=== PATIENT | female | born 1970 | race Caucasian/White ===

== ENCOUNTER 2024-01-21 16:28 | Emergency (ER) | payer MEDICAID, SELFPAY ==
[2024-01-21 17:05] VITALS: BP 180/84; PULSE 91; RESP 20; TEMP 37.1; O2SAT 98
--- NOTE | 2024-01-21 17:44 | XR_ITS ---
Examination: PA chest single view Technique: Upright PA chest single view Exam date and time: January 21, 2024 1737 hrs. Comparison April 16, 2023 Indications: Coughing today Findings: Normal heart size Lungs are clear. The osseous structures are intact Impression: No active disease
--- NOTE | 2024-01-21 17:44 | EKG_ITS ---
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
--- NOTE | 2024-01-21 17:46 | EDNOTE_ITS ---
<Statement entered by Sarita Garcia MD - 01/22/24 19:21> As co-signing physician, I was present and available for consult prn. I concur with the plan and care as documented by the midlevel provider. ED Chest Pain RME/HPI General Chief Complaint: Chest Pain Stated Complaint: CHEST PAIN, COUGH, SOB, LOWER BACK PAIN Time Seen by Provider: 01/21/24 16:39 Arrival date/time: 01/21/24 16:28 RME / HPI RME / HPI narrative: 53-year-old female patient came in for evaluation regarding cough. Patient's been having worsening cough for the last 3 days, associated with shortness of breath, wheezing, severity moderate. Patient also complaining of bilateral flank pain, since yesterday. Denies any fever. Denies any chest pain or coughing. Denies any other complaints no medication was taken prior travel. Related Data Home Medications ?Medication ?Instructions ?Recorded ?Confirmed gabapentin 300 mg capsule 300 mg PO TID #0 caps 01/04/15 03/23/23 metoprolol tartrate 25 mg tablet 25 tab PO BID 06/19/21 03/23/23 levetiracetam 500 mg tablet 500 mg PO BID 03/15/23 03/23/23 oxybutynin chloride 5 mg 5 mg PO DAILY 03/15/23 03/23/23 tablet,extended release 24 hr Previous Rx's ?Medication ?Instructions ?Recorded albuterol sulfate 90 mcg/actuation 1 inh inhalation QID PRN shortness 01/11/21 aerosol inhaler (ProAir HFA) of breath or wheezing #8.5 grams albuterol sulfate 90 mcg/actuation 1 inh inhalation QID PRN shortness 03/18/23 aerosol inhaler of breath or wheezing #8.5 grams fluticasone furoate 100 1 inh inhalation Q24H #60 ea 03/18/23 mcg-vilanterol 25 mcg/dose inhalation powder (Breo Ellipta) levofloxacin 500 mg tablet 500 mg PO QDAY #5 tabs 03/18/23 prednisone 10 mg tablet See Taper PO QDAY #10 tabs 03/18/23 sertraline 25 mg tablet 50 mg (2 x 25 mg) PO HS 30 days 03/18/23 #60 tabs albuterol sulfate 90 mcg/actuation 2 inh inhalation Q4H PRN shortness 03/23/23 aerosol inhaler of breath or wheezing #8.5 grams albuterol sulfate 90 mcg/actuation 2 puff inhalation QID PRN 04/16/23 aerosol inhaler shortness of breath or wheezing #8.5 grams prednisone 50 mg tablet 50 mg PO QDAY #7 tabs 04/16/23 prednisone 50 mg tablet 50 mg PO QDAY #7 tabs 01/21/24 Allergies Allergy/AdvReac Type Severity Reaction Status Date / Time Penicillins Allergy Mild RESP.DISTRE Verified 06/25/22 06:08 SS strawberry Allergy Mild HIVES Verified 06/25/22 06:08 tomato Allergy Mild FACIAL Verified 06/25/22 06:08 SWELLING watermelon Allergy Mild BLISTERS Verified 06/25/22 06:08 IN MOUTH Review of Systems Review of Systems Narrative Review of Systems: Review of system reviewed and within normal limits except mentioned in HPI ED Exam Narrative Physical exam: VITAL SIGNS: Reviewed. GENERAL APPEARANCE: Alert and interactive, follows commands, no acute distress, HEAD AND FACE: Non-traumatic. ENT: PERRL, pink conjunctivitis, eyelid no trauma, Mucous membrane moist. NECK: Supple, nontender, no nuchal rigidity. CHEST: No tenderness, no crepitus, no paradoxical movement, no retractions. LUNGS:Symmetric, no rales, + wheezing, no ronchi, no stridor, decreased breath sounds bilaterally. HEART: Regular rate, regular rhythm, no murmur, no gallops. ABDOMEN: Soft, positive bowel sounds, nondistended, no guarding, nontender, no rebound, no masses, RECTAL: Deferred. GENITAL: Deferred. NEUROLOGICAL: Gross motor function intact sensory function intact, Appropriate for age. MUSCULOSKELETAL: low back nontender, full range of motion. EXTREMITIES: Nontender, full range of motion. SKIN: Color pink, dry, no rash, no lacerations, no abrasions, no contusions. LYMPHATICS: Deferred. Course Quality Measures none Orders Category Date Time Status EKG (ED ONLY) *Do not use* NOW Care 01/21/24 17:44 Completed EKG (ED Only) Stat Exams 01/21/24 17:44 Draft XR chest 1V Stat Exams 01/21/24 17:44 Completed B-Type Natriuretic Peptide Stat Lab 01/21/24 18:07 Completed CBC Stat Lab 01/21/24 18:07 Completed Comprehensive Metabolic Panel Stat Lab 01/21/24 18:07 Completed Partial Thromboplastin Time Stat Lab 01/21/24 18:07 Completed Troponin I Stat Lab 01/21/24 18:07 Completed Urinalysis, C/S if Indicated Stat Lab 01/21/24 18:28 Completed ALBUTEROL RT 0.5ml [Proventil Rt 0.5ml] Med 01/21/24 17:45 Discontinued 2.5 mg INH X1 ONE Albuterol/Ipratr Rt Marcy [Duoneb Rt Marcy] Med 01/21/24 17:45 Discontinued 3 ml INH X1 ONE Dexamethasone Inj [Decadron Inj] Med 01/21/24 17:45 Discontinued 10 mg IM X1 ONE Sodium Chloride Rt Marcy 0.9% [NS Rt Marcy 0.9%] Med 01/21/24 17:45 Active 3 ml INH PRN PRN Vital Signs Vital signs: Vital Signs Temperature 98.8 F 01/21/24 17:05 Pulse Rate 91 01/21/24 17:05 Respiratory Rate 20 01/21/24 17:05 Blood Pressure 180/84 H 01/21/24 17:05 Pulse Oximetry (%) 98 01/21/24 17:05 Oxygen Delivery Method Room Air 01/21/24 17:05 Chest Pain MDM Narrative MDM Narrative:: 53-year-old female patient came in for evaluation regarding cough. Patient's been having worsening cough for the last 3 days, associated with shortness of breath, wheezing, severity moderate. Patient also complaining of bilateral flan k pain, since yesterday. Denies any fever. Denies any chest pain or coughing. Denies any other complaints no medication was taken prior travel. Chest x-ray came back unremarkable. Laboratory workup also came back normal. Patient received Decadron IM, and albuterol/DuoNeb breathing treatment with complete resolution of wheezing. Currently satting 93% on room air. Patient is denying any complaints. Patient wanted to go home now Patient data External records reviewed:: None Clinical information provided by:: patient Social determinants that could affect healthcare access:: none Patient has the following chronic illnesses:: COPD, seizure disorder hypertension How is presenting disease/condition affected by chronic disease/condition?: exacerbated by Evaluation data The following diagnostics were reviewed and interpreted by me:: lab results and radiology exam(s) Lab and/or radiology exams considered but not ordered:: None Interpretation Summary: I personally reviewed and interpreted the x-ray of this patient. There is no acute abnormalities found, no infiltrates no pneumothorax no hemothorax normal chest x-ray. Review of other structures was without significant abnormal findings also. I additionally reviewed the radiologist report and agree with the interpretation. Laboratory workup also came back normal. Urinalysis no UTI Medications / Prescriptions Medications or Prescriptions considered but not ordered:: None Medication administrations:: Medication Administration History Sodium Chloride (Sodium Chloride Rt [place]cy 0.9% 3 Ml Nebu) 3 ml INH PRN PRN PRN Reason: SOLN Stop: 02/20/24 17:44 Discontinued Medications Albuterol (Albuterol Rt 2.5 Mg/0.5 Ml Nebu) 2.5 mg INH X1 ONE Stop: 01/21/24 17:46 Last Admin: 01/21/24 18:10 Dose: 2.5 mg Documented By: DARBY Albuterol/Ipratropium (Albuterol/Ipratropium (Duoneb) Rt Marcy 3 Ml Nebu) 3 ml INH X1 ONE Stop: 01/21/24 17:46 Last Admin: 01/21/24 18:10 Dose: 3 ml Documented By: DARBY Dexamethasone Sodium Phosphate (Dexamethasone Sod Phos Inj 10 Mg/Ml Vial) 10 mg IM X1 ONE Stop: 01/21/24 17:46 Last Admin: 01/21/24 18:13 Dose: 10 mg Documented By: TRUDY Decadron, albuterol DuoNeb breathing treatment Consultations Consultation(s) initiated? (list below): No Diagnosis Chest Pain Differential Diagnosis: pneumothorax and other (Shortness of breath, wheezing, COPD exacerbation) Most likely diagnosis given after review of the tests above:: COPD exacerbation Admission Indicated Admission indicated?: not indicated Explain why admission is indicated or not indicated:: Stable Admission Request Was there a request for admission?: No Disposition Plan Disposition Plan: Discharge Discharge Attestation Discharge Attestation: The patient and all family members were given an opportunity to ask questions and understood the discharge instructions. Discharge instructions specifically effects, indications for sooner follow up or return to the emergency department, and the expected course of current diagnosis. Patient condition: Stable Discharge Plan Plan Patient Disposition: HOME (Self Care) Disposition Comment: Stable Prescriptions/Referrals Prescriptions/Med Rec: New prednisone 50 mg tablet 50 mg PO QDAY Qty: 7 0RF No Action gabapentin 300 MG capsule 300 mg PO TID Qty: 0 metoprolol tartrate 25 mg tablet 25 tab PO BID albuterol sulfate [ProAir HFA] 90 mcg/actuation HFA aerosol inhaler 1 inh inhalation QID PRN (Reason: shortness of breath or wheezing) Qty: 8.5 0RF levetiracetam 500 mg tablet 500 mg PO BID oxybutynin chloride 5 mg tablet extended release 24hr 5 mg PO DAILY sertraline 25 mg Tablet 50 mg PO HS 30 Days Qty: 60 2RF fluticasone furoate-vilanterol [Breo Ellipta] 100-25 mcg/dose blister with device 1 inh inhalation Q24H Qty: 60 2RF albuterol sulfate 90 mcg/actuation HFA aerosol inhaler 1 inh inhalation QID PRN (Reason: shortness of breath or wheezing) Qty: 8.5 2RF levofloxacin 500 mg tablet 500 mg PO QDAY Qty: 5 0RF prednisone 10 mg tablet See Taper PO QDAY Qty: 10 0RF Taper: Prednisone Taper 20 mg DAILY for 2 Days and 0 Hour 10 mg DAILY for 2 Days and 0 Hour 5 mg DAILY for 7 Days and 0 Hour albuterol sulfate 90 mcg/actuation HFA aerosol inhaler 2 inh inhalation Q4H PRN (Reason: shortness of breath or wheezing) Qty: 8.5 0RF albuterol sulfate 90 mcg/actuation HFA aerosol inhaler 2 puff inhalation QID PRN (Reason: shortness of breath or wheezing) Qty: 8.5 0RF prednisone 50 mg tablet 50 mg PO QDAY Qty: 7 0RF Referrals: Daria Finley PA-C [Primary Care Provider] - In 1 week Problem List Clinical Impression: Acute exacerbation of chronic obstructive airways disease Patient/Caregiver Discharge Instructions Discharge Activity: resume usual activities Education Materials: COPD Meds Additional Instructions: Thank you for the opportunity for serving you today. You are stable for discharged . You are advised to: Follow-up with your PCP in 1 to 2 days Return to ED for worsening of symptoms Increase oral fluids Take medication as prescribed Continue taking your albuterol inhaler Print Language: Danish Stand Alone Forms: Marisel Award Info., Patient Portal Info Letter PA/NAT Supervising Physician PA/ADMISSION NURSE COORDINATOR Supervising Physician: MD Radha
[2024-01-21 18:10] VITALS: PULSE 92
[2024-01-21] MEDS: ALBUTEROL/IPRATROPIUM (Duoneb) RT SOL 3 ML NEBU INH (18:10)
[2024-01-21] MEDS: ALBUTEROL RT 2.5 MG/0.5 ML NEBU INH (18:10)
[2024-01-21] MEDS: DEXAMETHASONE SOD PHOS INJ 10 MG/ML VIAL IM (18:13)
[2024-01-21 18:20] VITALS: PULSE 92; RESP 22; O2SAT 93
[2024-01-21 18:37] LABS: Collection Type, Urine Clean Catch; RBC,Urine 0 /hpf (0-3); Squamous Epithelial Cell,Urine 0 /hpf (0-5); WBC,Urine 0 /hpf (0-5)
[2024-01-21 18:38] LABS: Basophils # (Auto) 0.1 Thou/mm3 (0.0-0.2); Basophils % (Auto) 1 % (0-2.5); Eosinophils # (Auto) 0.1 Thou/mm3 (0.0-0.5); Eosinophils % (Auto) 1 % (0-10); Hematocrit 42.4 % (36.0-46.0); Immature Granulocytes % (Auto) 0 % (0-0); Immature Granulocytes Auto 0.04 Thou/mm3 (0.00-0.00); Lymphocytes # (Auto) 1.6 Thou/mm3 (1.0-4.8); Lymphocytes % (Auto) 16 % (10-50); Mean Corpuscular Hemoglobin 29.7 pg (25.0-35.0); Mean Corpuscular Volume 90 fL (80-100); Monocytes # (Auto) 0.9 Thou/mm3 (0.0-0.8); Monocytes % (Auto) 10 % (0-12); Neutrophils # (Auto) 7.1 Thou/mm3 (1.8-7.7); Neutrophils % (Auto) 72 % (37-80); Nucleated Red Blood Cell % 0 /100 WBC (0); Platelet Count 238 Thou/mm3 (140-440); RDW Standard Deviation 43.3 fL (36.4-46.3); Red Blood Count 4.71 Miln/mm3 (4.00-5.20); White Blood Count 9.9 Thou/mm3 (3.6-11.0)
[2024-01-21 18:45] LABS: Bacteria,Urine Rare; Bilirubin,Urine Negative (Negative); Blood,Urine Negative (Negative); Clarity,Urine Clear (Clear/Hazy); Color,Urine Lt-Yellow (Lt Yel-Yel); Culture Indicated,Urine Not Indicated; Glucose, Urine Negative (Negative); Ketones,Urine Negative (Negative); Leukocyte Esterase,Urine Negative (Negative); Nitrite,Urine Negative (Negative); PH,Urine 7.5 (5.0-7.0); Protein,Urine Negative (Neg - Trace); Specific Gravity,Urine 1.012 (1.001-1.035); Urobilinogen,Urine Negative mg/dL (0.0-1.0)
[2024-01-21 18:53] LABS: Partial Thromboplastin Time 29.3 Seconds (22.0-36.0)
[2024-01-21 19:02] LABS: B-Type Natriuretic Peptide 29 pg/mL (0-100)
[2024-01-21 19:05] LABS: Alanine Aminotransferase 46 U/L (10-49); Albumin, Serum 4.6 gm/dL (3.5-5.0); Albumin/Globulin Ratio 1.8 (1.2-2.2); Alkaline Phosphatase 171 U/L (46-116); Anion Gap 5 (7-16); Aspartate Amino Transferase 32 U/L (0-34); BUN/Creatinine Ratio 13 Ratio (12-20); Bilirubin,Total 0.3 mg/dL (0.3-1.2); Blood Urea Nitrogen 10 mg/dL (9-23); Calcium 9.7 mg/dL (8.3-10.6); Calcium (Corrected) 9.7 mg/dL (8.5-10.1); Carbon Dioxide 29.7 mMol/L (20.0-31.0); Chloride 102 mMol/L (98-107); Creatinine (Component) 0.8 mg/dL (0.6-1.3); Globulin 2.6 gm/dL (2.3-3.5); Glucose 95 mg/dL (74-106); Osmolality,Calculated 272 (275-295); Potassium 4.2 mMol/L (3.4-5.1); Sodium 137 mMol/L (136-145); Total Protein 7.2 gm/dL (5.7-8.2); Troponin I < 0.020 ng/mL (0.0-0.045); eGFR > 60 See Note
[2024-01-21 20:41] VITALS: BP 128/77; PULSE 88; RESP 16; O2SAT 99
== END 2024-01-21 20:41 | disposition home or self-care (01) ==
PROVIDERS: Nurse Practitioner Family; Emergency Provider Emergency Medicine; PCP Physician Assistant
DX: J44.1 Chronic obstructive pulmonary disease with (acute) exacerbation (principal)
CPT/HCPCS: 36415; 71045; 80053; 81001; 83880; 84484; 85025; 85730; 93005; 94640; 96372; 99283; A9270; J1100

== ENCOUNTER 2024-02-07 15:47 | Emergency (ER) | payer MEDICAID, SELFPAY ==
[2024-02-07 16:02] VITALS: BP 177/134; PULSE 94; RESP 20; TEMP 36.6; O2SAT 96
[2024-02-07 16:05] VITALS: PULSE 110
[2024-02-07] MEDS: IPRATROPIUM RT 0.5 MG/ 2.5 ML NEBU 1 MG INH (16:05)
[2024-02-07] MEDS: ALBUTEROL RT 2.5 MG/0.5 ML NEBU 10 MG INH (16:05)
[2024-02-07] MEDS: SODIUM CHLORIDE RT SOL 0.9% 3 ML NEBU INH (16:05)
[2024-02-07 16:06] VITALS: PULSE 87; RESP 20; O2SAT 96
[2024-02-07 16:11] VITALS: BMI 41.3
[2024-02-07] MEDS: LORazepam 0.5 MG TABLET 1 MG PO (16:17)
[2024-02-07] MEDS: predniSONE 20 MG TABLET 60 MG PO (16:19)
--- NOTE | 2024-02-07 17:03 | EDNOTE_ITS ---
ED SOB =RME/HPI General Chief Complaint: Shortness of Breath/Dyspnea Stated Complaint: respiratory distress Time Seen by Provider: 02/07/24 15:57 Arrival date/time: 02/07/24 15:47 RME / HPI RME / HPI Narrative: 53 y/o F with history of COPD continued secondhand smoke exposure, who recently finished prednisone approximately 3 days ago for recent exacerbation, who presents with 1 day of increasing shortness of breath. She has been using inhaler today with countless number of treatments/puffs without improvement therefore comes to the emergency department. She also notes approximately 2 days of increasing runny nose, and a productive cough she is concerned that she cannot completely cough up this phlegm. She denies sick contacts. 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 She is not vaccinated for the flu. Related Data Home Medications ?Medication ?Instructions ?Recorded ?Confirmed gabapentin 300 mg capsule 300 mg PO TID #0 caps 01/04/15 03/23/23 metoprolol tartrate 25 mg tablet 25 tab PO BID 06/19/21 03/23/23 levetiracetam 500 mg tablet 500 mg PO BID 03/15/23 03/23/23 oxybutynin chloride 5 mg 5 mg PO DAILY 03/15/23 03/23/23 tablet,extended release 24 hr Previous Rx's ?Medication ?Instructions ?Recorded albuterol sulfate 90 mcg/actuation 1 inh inhalation QID PRN shortness 01/11/21 aerosol inhaler (ProAir HFA) of breath or wheezing #8.5 grams albuterol sulfate 90 mcg/actuation 1 inh inhalation QID PRN shortness 03/18/23 aerosol inhaler of breath or wheezing #8.5 grams fluticasone furoate 100 1 inh inhalation Q24H #60 ea 03/18/23 mcg-vilanterol 25 mcg/dose inhalation powder (Breo Ellipta) levofloxacin 500 mg tablet 500 mg PO QDAY #5 tabs 03/18/23 prednisone 10 mg tablet See Taper PO QDAY #10 tabs 03/18/23 sertraline 25 mg tablet 50 mg (2 x 25 mg) PO HS 30 days 03/18/23 #60 tabs albuterol sulfate 90 mcg/actuation 2 inh inhalation Q4H PRN shortness 03/23/23 aerosol inhaler of breath or wheezing #8.5 grams albuterol sulfate 90 mcg/actuation 2 puff inhalation QID PRN 04/16/23 aerosol inhaler shortness of breath or wheezing #8.5 grams prednisone 50 mg tablet 50 mg PO QDAY #7 tabs 04/16/23 prednisone 50 mg tablet 50 mg PO QDAY #7 tabs 01/21/24 albuterol sulfate 90 mcg/actuation 1 inh inhalation QID PRN shortness 02/07/24 aerosol inhaler of breath or wheezing #8.5 grams doxycycline monohydrate 100 mg 100 mg PO BID #10 caps 02/07/24 capsule oseltamivir 75 mg capsule (Tamiflu) 75 mg PO Q12H 5 days #10 caps 02/07/24 prednisone 50 mg tablet 50 mg PO QDAY #3 tabs 02/07/24 Allergies Allergy/AdvReac Type Severity Reaction Status Date / Time Penicillins Allergy Mild RESP.DISTRE Verified 06/25/22 06:08 SS strawberry Allergy Mild HIVES Verified 06/25/22 06:08 tomato Allergy Mild FACIAL Verified 06/25/22 06:08 SWELLING watermelon Allergy Mild BLISTERS Verified 06/25/22 06:08 IN MOUTH Review of Systems Review of Systems Systems Reviewed: All systems reviewed, normal except as documented ED Exam Narrative Physical exam: GENERAL APPEARANCE: AxOx4, obese, smells of cigarette smoke, audible wheezes with very exaggerated respiratory effort, increased respiratory distress, anxious, but able with calming to speak 3-5 word sentences HEENT: NC, AT. MMM. EOMI, clear conjunctiva, oropharynx clear. NECK: Supple without lymphadenopathy. No stiffness or restricted ROM. HEART: Normal rate and regular rhythm, normal S1/S1, no m/r/g LUNGS: moving air well. Wise expiratory wheezes no crackles or wheezes are heard. ABDOMEN: Soft, nontender, nondistended with good bowel sounds heard. BACK: No midline C/T/L spine pain or deformity, No CVAT, no obvious deformity. EXTREMITIES: Without cyanosis, clubbing or edema. MUSCULOSKELETAL: FROM of all major joints, no chest tenderness NEUROLOGICAL: Grossly nonfocal. Alert and oriented, moving all 4 extremities. CN not formally tested but appear grossly intact. Observed to ambulate with normal gait. Skin: Warm and dry without any rash. Course Quality Measures none Orders Category Date Time Status ALBUTEROL RT 0.5ml [Proventil Rt 0.5ml] Med 02/07/24 15:56 Discontinued 10 mg INH X1 ONE Ipratropium [place] Rt Marcy [Atrovent Rt Marcy] Med 02/07/24 15:57 Discontinued 1 mg INH X1 ONE LORazepam [Ativan] Med 02/07/24 15:57 Discontinued 1 mg PO X1 ONE Sodium Chloride Rt Marcy 0.9% [NS Rt Marcy 0.9%] Med 02/07/24 15:56 Active 3 ml INH PRN PRN predniSONE Med 02/07/24 15:57 Discontinued 60 mg PO X1 ONE Vital Signs Vital signs: Vital Signs Temperature 97.9 F 02/07/24 16:02 Pulse Rate 94 02/07/24 16:02 Respiratory Rate 20 02/07/24 16:02 Blood Pressure 177/134 H 02/07/24 16:02 Pulse Oximetry (%) 96 02/07/24 16:02 Oxygen Delivery Method Nasal Cannula 02/07/24 16:02 Oxygen Flow Rate 2 02/07/24 16:02 SpO2 96% on 2 L nasal cannula patient is not hypoxic Shortness of Breath / Dyspnea MDM Narrative MDM Narrative:: Ms. Ryan has known COPD who presents with shortness of breath which I feel is compounded by anxiety. After review of her utilization of the MDI I do feel that the anxiety is contributing to ineffective dosing with the treatment. She did very well with an aggressive dose of nebulized bronchodilators, oral anxiolytics, and oral steroids. She has responded well to treatment therefore further workup was not indicated as this is consistent with her chronic COPD. She has stable vital signs, chest x-ray is not indicated as I do feel she can benefit from a dose of oral antivirals and antibiotics for an acute bronchitis where with COPD is at high risk for bacterial superinfection. She likely does have a viral syndrome, given her influenza-like illness, and as she is not immunized, is within 48 hours of onset of symptoms, would benefit from oral Tamiflu. At this point flu testing would not offer strong negative productive value and testing is not warranted today Patient data External records reviewed:: [facility] previous records Clinical information provided by:: patient Social determinants that could affect healthcare access:: none Patient has the following chronic illnesses:: COPD, epilepsy How is presenting disease/condition affected by chronic disease/condition?: caused by Evaluation data The following diagnostics were reviewed and interpreted by me:: other (specify) (Diagnostic testing not indicated today) Lab and/or radiology exams considered but not ordered:: As per narrative Interpretation Summary: Not applicable Medications / Prescriptions Medications or Prescriptions considered but not ordered:: None Medication administrations:: Medication Administration History Sodium Chloride (Sodium Chloride Rt Marcy 0.9% 3 Ml Nebu) 3 ml INH PRN PRN PRN Reason: SOLN Stop: 03/08/24 15:55 Last Admin: 02/07/24 16:05 Dose: 3 ml Documented By: Discontinued Medications Albuterol (Albuterol Rt 2.5 Mg/0.5 Ml Nebu) 10 mg INH X1 ONE Stop: 02/07/24 15:57 Last Admin: 02/07/24 16:05 Dose: 10 mg Documented By: Ipratropium [place] (Ipratropium Rt 0.5 Mg/ 2.5 Ml Nebu) 1 mg INH X1 ONE Stop: 02/07/24 15:58 Last Admin: 02/07/24 16:05 Dose: 1 mg Documented By: Lorazepam (Lorazepam 0.5 Mg Tablet) 1 mg PO X1 ONE Stop: 02/07/24 15:58 Last Admin: 02/07/24 16:17 Dose: 1 mg Documented By: PONCE Prednisone (Prednisone 20 Mg Tablet) 60 mg PO X1 ONE Stop: 02/07/24 15:58 Last Admin: 02/07/24 16:19 Dose: 60 mg Documented By: PONCE Above Consultations Consultation(s) initiated? (list below): No Diagnosis Shortness of Breath Differential Diagnosis: acute exacerbation of chronic obstructive airways disease, congestive heart failure, community acquired pneumonia and other (Acute bronchitis, anxiety) Most likely diagnosis given after review of the tests above:: See below Admission Indicated Admission indicated?: not indicated Admission Request Was there a request for admission?: No Disposition Plan Disposition Plan: Discharge Discharge Attestation Discharge Attestation: The patient and all family members were given an opportunity to ask questions and understood the discharge instructions. Discharge instructions specifically effects, indications for sooner follow up or return to the emergency department, and the expected course of current diagnosis. Patient condition: Stable Critical Care Time Critical Care Time Critical Care Time: Yes Total Critical Care Time (min.): 35 Attestation: Excluding billable procedures for the rep response, analysis, management, treatment, and documentation to vent the very possible risk of cardiopulmonary decompensation and/or . Discharge Plan Plan Patient Disposition: HOME (Self Care) Prescriptions/Referrals Prescriptions/Med Rec: New doxycycline monohydrate 100 mg capsule 100 mg PO BID Qty: 10 0RF oseltamivir [Tamiflu] 75 mg capsule 75 mg PO Q12H 5 Days Qty: 10 0RF prednisone 50 mg tablet 50 mg PO QDAY Qty: 3 0RF albuterol sulfate 90 mcg/actuation HFA aerosol inhaler 1 inh inhalation QID PRN (Reason: shortness of breath or wheezing) Qty: 8.5 0RF Rx Instructions: Please dispense with spacer and teaching No Action gabapentin 300 MG capsule 300 mg PO TID Qty: 0 metoprolol tartrate 25 mg tablet 25 tab PO BID albuterol sulfate [ProAir HFA] 90 mcg/actuation HFA aerosol inhaler 1 inh inhalation QID PRN (Reason: shortness of breath or wheezing) Qty: 8.5 0RF prednisone 50 mg tablet 50 mg PO QDAY Qty: 7 0RF levetiracetam 500 mg tablet 500 mg PO BID oxybutynin chloride 5 mg tablet extended release 24hr 5 mg PO DAILY sertraline 25 mg Tablet 50 mg PO HS 30 Days Qty: 60 2RF fluticasone furoate-vilanterol [Breo Ellipta] 100-25 mcg/dose blister with device 1 inh inhalation Q24H Qty: 60 2RF albuterol sulfate 90 mcg/actuation HFA aerosol inhaler 1 inh inhalation QID PRN (Reason: shortness of breath or wheezing) Qty: 8.5 2RF levofloxacin 500 mg tablet 500 mg PO QDAY Qty: 5 0RF prednisone 10 mg tablet See Taper PO QDAY Qty: 10 0RF Taper: Prednisone Taper 20 mg DAILY for 2 Days and 0 Hour 10 mg DAILY for 2 Days and 0 Hour 5 mg DAILY for 7 Days and 0 Hour albuterol sulfate 90 mcg/actuation HFA aerosol inhaler 2 inh inhalation Q4H PRN (Reason: shortness of breath or wheezing) Qty: 8.5 0RF albuterol sulfate 90 mcg/actuation HFA aerosol inhaler 2 puff inhalation QID PRN (Reason: shortness of breath or wheezing) Qty: 8.5 0RF prednisone 50 mg tablet 50 mg PO QDAY Qty: 7 0RF Referrals: Daria Finley PA-C [Primary Care Provider] - In 1 week Problem List Clinical Impression: Acute exacerbation of chronic obstructive airways disease, Panic attack Patient/Caregiver Discharge Instructions Education Materials: Using an Inhaler with a Spacer, ED COPD Flare, ED Panic Attack Additional Instructions: Follow-up with your primary care doctor in 2 to 3 days for recheck. You can return to the emergency department sooner symptoms worsen or if he notes any new, concerning issues. Print Language: Bermudian Stand Alone Forms: Marisel Award Info., Patient Portal Info Letter
[2024-02-07 17:31] VITALS: BP 127/105; PULSE 91; RESP 18; TEMP 36.6; O2SAT 95
== END 2024-02-07 17:46 | disposition home or self-care (01) ==
PROVIDERS: Emergency Provider Emergency Medicine; PCP Physician Assistant
DX: J44.1 Chronic obstructive pulmonary disease with (acute) exacerbation (principal); F41.0 Panic disorder [episodic paroxysmal anxiety]; Z77.22 Contact with and (suspected) exposure to environmental tobacco smoke (acute) (chronic)
CPT/HCPCS: 94644; 99283; J7512; A9270

== ENCOUNTER 2024-09-04 05:37 | Inpatient (IN) | payer MEDICAID, SELFPAY ==
[2024-09-04] VITALS (36 sets, daily range): BP systolic 100–178; BP diastolic 57–109; PULSE 78–108; RESP 15–32; TEMP 35.9–37.6; O2SAT 92–100; BMI 37.1; BMI 36.9
--- NOTE | 2024-09-04 05:55 | PD.EDRME ---
Rapid Medical Screening Exam RME Arrival date/time: 09/04/24 05:37 This is a case of a 54-year-old female who came in in the emergency room due to painful lump on the right anterior chest for 2 days worsening of the symptoms now that there is a 5 x 5 redness on the anterior right chest this patient decided to sought consult here in the emergency room Chief Complaint: Skin/Abscess/Foreign Body Vital signs: Vital Signs Temperature 99.4 F 09/04/24 05:53 Pulse Rate 108 H 09/04/24 05:53 Respiratory Rate 20 09/04/24 05:53 Blood Pressure 178/83 H 09/04/24 05:53 Pulse Oximetry (%) 98 09/04/24 05:53 Oxygen Delivery Method Room Air 09/04/24 05:53
[2024-09-04] MEDS: HYDROcodone/APAP 5/325 TABLET 1 TAB PO ×2 (05:59→13:03)
[2024-09-04 06:45] LABS: Basophils # (Auto) 0.0 Thou/mm3 (0.0-0.2); Basophils % (Auto) 0 % (0-2.5); Eosinophils # (Auto) 0.1 Thou/mm3 (0.0-0.5); Eosinophils % (Auto) 1 % (0-10); Hematocrit 40.0 % (36.0-46.0); Hemoglobin 13.0 g/dL (12.0-16.0); Immature Granulocytes Auto 0.04 Thou/mm3 (0.00-0.00); Lymphocytes # (Auto) 1.2 Thou/mm3 (1.0-4.8); Lymphocytes % (Auto) 10 % (10-50); Mean Corpuscular HGB Conc 32.5 g/dl (31.0-37.0); Mean Corpuscular Hemoglobin 29.5 pg (25.0-35.0); Mean Corpuscular Volume 91 fL (80-100); Monocytes # (Auto) 1.3 Thou/mm3 (0.0-0.8); Monocytes % (Auto) 10 % (0-12); Neutrophils # (Auto) 9.6 Thou/mm3 (1.8-7.7); Neutrophils % (Auto) 78 % (37-80); Nucleated Red Blood Cell # 0.00 Thou/mm3 (0.00-0.00); Nucleated Red Blood Cell % 0 /100 WBC (0); Platelet Count 212 Thou/mm3 (140-440); RDW Standard Deviation 47.5 fL (36.4-46.3); Red Blood Count 4.41 Miln/mm3 (4.00-5.20); White Blood Count 12.2 Thou/mm3 (3.6-11.0)
--- NOTE | 2024-09-04 06:53 | EKG_ITS ---
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
--- NOTE | 2024-09-04 06:54 | PD.EDSKIN ---
ED Skin Abcess FB-RME/HPI General Chief complaint: Skin/Abscess/Foreign Body Stated complaint: ABSCESS TO RIGHT AXILLA/CHEST AREA Arrival date/time: 09/04/24 05:37 Limitations: no limitations RME / HPI RME / HPI narrative: 09/04/24 05:37 This is a case of a 54-year-old female who came in in the emergency room due to painful lump on the right anterior chest for 2 days worsening of the symptoms now that there is a 5 x 5 redness on the anterior right chest this patient decided to sought consult here in the emergency room DR. BEN OWENS ED EVALUATION: 54-year-old female with past medical history of seizures (currently out of medication), COPD, hypertension, and history of methamphetamine use (smokes, no IV) presents to the Emergency Department accompanied by her spouse with complaint of right-sided underarm area of erythema extending anteriorly to the right nipple, associated with induration, warmth, and a 1 cm area of purulent drainage. Pain has worsened despite being prescribed antibiotics by her PCP on 09/01/2024 and using hot compresses at home. She denies congestion, runny nose, cough, or systemic symptoms. Allergic to penicillin. Related Data Home Medications ?Medication ?Instructions ?Recorded ?Confirmed gabapentin 300 mg capsule 300 mg PO TID #0 caps 01/04/15 03/23/23 metoprolol tartrate 25 mg tablet 25 tab PO BID 06/19/21 03/23/23 levetiracetam 500 mg tablet 500 mg PO BID 03/15/23 03/23/23 oxybutynin chloride 5 mg 5 mg PO DAILY 03/15/23 03/23/23 tablet,extended release 24 hr Previous Rx's ?Medication ?Instructions ?Recorded albuterol sulfate 90 mcg/actuation 1 inh inhalation QID PRN shortness 01/11/21 aerosol inhaler (ProAir HFA) of breath or wheezing #8.5 grams albuterol sulfate 90 mcg/actuation 1 inh inhalation QID PRN shortness 03/18/23 aerosol inhaler of breath or wheezing #8.5 grams fluticasone furoate 100 1 inh inhalation Q24H #60 ea 03/18/23 mcg-vilanterol 25 mcg/dose inhalation powder (Breo Ellipta) levofloxacin 500 mg tablet 500 mg PO QDAY #5 tabs 03/18/23 prednisone 10 mg tablet See Taper PO QDAY #10 tabs 03/18/23 sertraline 25 mg tablet 50 mg (2 x 25 mg) PO HS 30 days 03/18/23 #60 tabs albuterol sulfate 90 mcg/actuation 2 inh inhalation Q4H PRN shortness 03/23/23 aerosol inhaler of breath or wheezing #8.5 grams albuterol sulfate 90 mcg/actuation 2 puff inhalation QID PRN 04/16/23 aerosol inhaler shortness of breath or wheezing #8.5 grams prednisone 50 mg tablet 50 mg PO QDAY #7 tabs 04/16/23 prednisone 50 mg tablet 50 mg PO QDAY #7 tabs 01/21/24 albuterol sulfate 90 mcg/actuation 1 inh inhalation QID PRN shortness 02/07/24 aerosol inhaler of breath or wheezing #8.5 grams doxycycline monohydrate 100 mg 100 mg PO BID #10 caps 02/07/24 capsule prednisone 50 mg tablet 50 mg PO QDAY #3 tabs 02/07/24 Allergies Allergy/AdvReac Type Severity Reaction Status Date / Time Penicillins Allergy Mild RESP.DISTRE Verified 09/04/24 05:39 SS strawberry Allergy Mild HIVES Verified 09/04/24 05:39 tomato Allergy Mild FACIAL Verified 09/04/24 05:39 SWELLING watermelon Allergy Mild BLISTERS Verified 09/04/24 05:39 IN MOUTH Review of Systems Review of Systems Systems Reviewed: All systems reviewed, normal except as documented Past Medical History Past Medical History NEUROLOGIC: Positive Neurological Disorders, Seizures and Head Trauma CARDIAC: Positive Cardiac Disorders and Hypertension RESPIRATORY: Positive Chronic Obstructive Pulmonary Disease (COPD) and Pneumonia GASTROINTESTINAL: Positive Colitis and Obesity REPRODUCTIVE: Positive Previous Pregnancies MUSCULOSKELETAL: Positive Arthritis and Fractures ENT: Positive Head Trauma OTHER HISTORY: Positive Hospitalization and Measles Family History FAMILY HISTORY: Positive Family Cardiac Disorders and Family Cancer (pt's grandma breast cancer) Surgical History SURGICAL: Positive Tubal Ligation and Section Social History SMOKING STATUS: Never smoker SUBSTANCE USE: marijuana (Uses at night to sleep) and methamphetamine (Former) ALCOHOL: Never ED Exam General Limitations: Present no limitations General appearance: Present alert and in no apparent distress Head Head exam: Present atraumatic, normocephalic and normal inspection Eye Eye exam: Present normal appearance, PERRL and EOMI ENT ENT exam: Present normal exam, normal oropharynx and mucous membranes moist Neck Neck exam: Present normal inspection, full ROM and trachea midline Chest Chest inspection: Present normal inspection and symmetric chest wall rise Respiratory Respiratory exam: Present normal lung sounds bilaterally Cardiovascular Cardiovascular exam: Present regular rate, normal rhythm and normal heart sounds Abdominal Exam Abdominal exam: Present soft and normal bowel sounds Extremities Exam Extremities exam: Present normal inspection and full ROM Back Exam Back exam: Present normal inspection and full ROM Neurological Exam Neurological exam: Present alert, oriented X3 and CN II-XII intact Psychiatric Psychiatric exam: Present normal affect and normal mood Skin Skin exam: Present warm, dry and other (5x8 inches area of erythema under the right armpit anteriorly extending to the right nipple surface, with induration and warmness; there is purulent discharge area measuring 1 cm) Course Quality Measures Current suspected stage: sepsis Possible source: skin/soft tissue Blood cultures ordered: yes Antibiotic ordered: Yes Pertinent labs: 09/04/24 07:28 Lactic Acid 0.6 mMol/L (0.4-2.0) Procalcitonin 0.11 ng/ml (0.0-0.49) 0653: Sepsis alert initiated. Orders made at this time are congruent with ED Adult Sepsis Order List. Re-evaluation is to be completed. 0836: Fluids started. 0906: Sepsis reassessment performed consisting of lab review, vitals, physical exam including auscultation of heart, lungs, and visual evaluation of capillary refills, mucosal membranes and extremities. sepsis Orders Category Date Time Status Admit to Inpatient Status Routine Admission 09/04/24 11:45 Active Patient Condition Routine Admission 09/04/24 11:45 Ordered Bedside Blood Glucose NOW Care 09/04/24 06:[address] Screening NOW Care 09/04/24 07:[address] Screening NOW Care 09/04/24 09:15 Active Communication Engineer Q4H START 00 Care 09/04/24 06:53 Active EKG (ED ONLY) *Do not use* NOW Care 09/04/24 11:48 Active Insert IV NOW Care 09/04/24 06:53 Active Notify provider NEEDED Care 09/04/24 11:45 Active Strict Intake and Output Routine Care 09/04/24 06:[address] chest abdomen pelvis w Stat Exams 09/04/24 07:12 Completed CXR2 [XR chest 2V] Stat Exams 09/04/24 11:48 Ordered EKG (ED Only) Stat Exams 09/04/24 11:48 Ordered US breast RT complete Stat Exams 09/04/24 07:05 Completed Blood Culture (Lab) Stat Lab 09/04/24 07:28 Received CBC Stat Lab 09/04/24 06:30 Completed CBC Stat Lab 09/04/24 07:28 Completed CMP [Comprehensive Metabolic Panel] Stat Lab 09/04/24 06:30 Completed Lactate (Lactic Acid) Stat Lab 09/04/24 07:28 Completed Partial Thromboplastin Time Stat Lab 09/04/24 07:28 Completed Procalcitonin Stat Lab 09/04/24 07:28 Completed Prothrombin Time with INR Stat Lab 09/04/24 07:28 Completed HYDROcodone*/APAP 5/325 [Stuart 5/325] Med 09/04/24 05:54 Discontinued 1 tab PO X1 ONE Meropenem Inj [Merrem Inj] 1,000 mg Med 09/04/24 06:54 Discontinued SODIUM CHLORIDE 0.9% (Popper) [Ns 0.9% (P)] 50 ml IV NOW Midazolam Inj [Versed Inj] Med 09/04/24 06:59 Discontinued 2 mg IVP X1 ONE Midazolam Inj [Versed Inj] Med 09/04/24 07:04 Discontinued 2 mg IVP X1 ONE Midazolam Inj [Versed Inj] Med 09/04/24 06:54 Discontinued 6 mg .ROUTE .STK-MED ONE Ringers Lactated 1000 ml [Lactated Ringers] 1,000 ml Med 09/04/24 07:01 Discontinued IV 999 mls/hr Sodium Chloride 0.9% 1000 ml [Ns] 1,000 ml Med 09/04/24 07:09 Discontinued IV 999 mls/hr Vancomycin Inj 1,500 mg Med 09/04/24 08:00 Discontinued Sodium Chloride 0.9% 500 ml [Ns] 500 ml IV X1 Vancomycin Pharmacy to Dose Med 09/04/24 06:54 Discontinued 1 each IV NOW ONE levETIRAcetam INJ [Keppra Inj] Med 09/04/24 06:53 Discontinued 1,000 mg IVP X1 ONE Code Status Routine Oth 09/04/24 11:45 Ordered EKG (RT) Stat RT 09/04/24 06:53 Draft Reevaluation(s) Reevaluation #1: Patient started having a seizure-like activity, shaking, that lasted 30 seconds. Then, following commands and trying to speak. 1 mg of versed was given. Time: 06:56 Vital Signs Vital signs: Vital Signs Temperature 99.4 F 09/04/24 05:53 Pulse Rate 108 H 09/04/24 05:53 Respiratory Rate 20 09/04/24 05:53 Blood Pressure 178/83 H 09/04/24 05:53 Pulse Oximetry (%) 98 09/04/24 05:53 Oxygen Delivery Method Room Air 09/04/24 05:53 Skin / Abscess / Foreign Body MDM Narrative MDM Narrative:: I, Zhane Whitehead, am scribing for and in the presence of Dr. Gabriel. Patient is a 54-year-old female with medical history notable for recurrent skin infections of her axilla, polysubstance use with an emergency department with concerns for possible infected bug bite to patient's right lateral chest wall. Vital signs and exam as listed. Concern for cellulitis, abscess, among others. Ordered labs, breast ultrasound as well as CT of the chest with contrast to look for an abscess. Patient has a history of a seizure disorder, ordered Keppra she has been off of her antiepileptic medications for some months. Patient is allergic to penicillin, ordered meropenem and vancomycin. Patient had seizure-like activity in the emergency department witness, without a postictal state. Patient did receive Versed. Also provided with Keppra. Labs without acute leukocytosis, no left shift, no other acute hematologic abnormality, no significant electrolyte abnormalities, patient with a transaminitis ALT 273 AST 114 alk phos 428, T. bili normal. Procalcitonin lactic acid normal. CT chest abdomen pelvis with diffuse edema anterior and lateral right breast without evidence of abscess. Patient does have right axillary lymphadenopathy. Patient also has a 6 mm pulmonary nodule in the right upper lobe. Has hepatosplenomegaly, no gallstones, no pancreatic mass, she has right kidney scarring and a 2 mm right renal calculus without evidence of obstruction. Patient also with severe osteopenia as well as advanced degenerative disc disease of L1 L2-L3-L4. Given that patient has been on antibiotics, and the swelling and redness has been getting worse over the last couple days, concerned the patient has failed outpatient treatment. Will discuss admission with hospitalist service... acepted patient for admission Patient data External records reviewed:: [facility] previous records Clinical information provided by:: patient Social determinants that could affect healthcare access:: substance use (methamphetamine use (smokes, no IV)) Patient has the following chronic illnesses:: Seizures (currently out of medication), COPD, hypertension, and history of methamphetamine use (smokes, no IV). Allergic to penicillin. How is presenting disease/condition affected by chronic disease/condition?: uneffected by Evaluation data The following diagnostics were reviewed and interpreted by me:: lab results and radiology exam(s) Lab and/or radiology exams considered but not ordered:: none Interpretation Summary: Procedure(s): CT chest abdomen pelvis w Accession Number(s): [id number] cc: Gopal Fulton MD; Walt Tapia MD; Rosa Maria Gabriel MD~ Examination: CT chest with intravenous contrast CT abdomen with intravenous contrast CT pelvis with intravenous contrast 2-D coronal and sagittal reconstructions Time of exam: 25, 0928 hrs. Indications: Left chest and breast pain this week, redness and warmth in the right axillary region with low CTDI: vol (mGy) : 17.9 DLP: (mGycm): 1487 Technique: Multiple axial images of the chest, abdomen and pelvis with intravenous contrast, 3.0 mm slice thickness. Images obtained post intravenous injection Isovue 370 60 cc. 2-D sagittal and coronal reconstructions. Low dose protocols were performed. One or more of the following dose reduction techniques were used; automated exposure control, adjustment of the mA and/or KV according to patient size, use of iterative reconstruction technique. Findings: Diffuse edema anterior and lateral right breast without discrete fluid-filled collection Right axillary lymphadenopathy Normal heart size No thoracic aortic aneurysm dilatation No pulmonary artery filling defects on this non-CTA study No pneumonia, pulmonary edema or pleural disease, the largest lymph node 2.5 cm 6 mm pulmonary nodule right upper lobe No visualized liver or splenic lesion Hepatosplenomegaly No gallstones No pancreatic mass Nodular thickening left adrenal gland Severe right renal parenchymal scar formation with 2 mm right renal calculus No hydronephrosis or ureteral calculi No bowel obstruction No pericecal inflammatory change Calcification in the uterus No pelvic mass Bladder intact Significant osteopenia Advanced degenerative disc disease L1-L2, L3-L4 Impression: Diffuse edema in the anterior lateral right breast with axillary lymphadenopathy, differential would include mastitis, inflammatory breast cancer Recommend diagnostic mammography follow-up 60 mm pulmonary nodule right upper lobe, recommend 6 month follow-up CT chest without contrast. Hepatosplenomegaly Severe right renal parenchymal scar formation with 2 mm right renal calculus, no hydronephrosis or ureteral calculi Dictated By: Walt Tapia MD Procedure(s): US breast RT complete Accession Number(s): [id number] cc: Gopal Fulton MD; Walt Tapia MD; Rosa Maria Gabriel MD~ Examination: Breast ultrasound, unilateral, right complete Date and time of exam: September 04, 2024 0842 hrs. Indications: Redness pain and swelling with lump in the right axilla beginning last week Technique: Real-time dailey scale ultrasonographic imaging performed right breast including all 4 quadrants as well as nipple retroareolar and axillary region. Findings: Edema in the breast and axillary region, Limited study secondary to patient pain Impression: Limited study Edema in the anterior and lateral breast and axilla, differential would include mastitis, underlying inflammatory breast cancer not excluded Recommend diagnostic mammography follow-up Dictated By: Walt Tapia MD Medications / Prescriptions Medications or Prescriptions considered but not ordered:: none Medication administrations:: Medication Administration History Discontinued Medications Hydrocodone Bitart/Acetaminophen (Hydrocodone/Apap 5/325 Tablet) 1 tab PO X1 ONE Stop: 09/04/24 05:55 Last Admin: 09/04/24 05:59 Dose: 1 tab Documented By: BD Vancomycin HCl 1,500 mg/ (Sodium Chloride) 500 mls @ 200 mls/hr IV X1 ONE Stop: 09/04/24 10:29 Last Admin: 09/04/24 08:34 Dose: 200 mls/hr Documented By: NANCI Meropenem 1,000 mg/ Sodium (Chloride) 50 mls @ 100 mls/hr IV NOW ONE Stop: 09/04/24 06:55 Last Infusion: 09/04/24 09:09 Dose: Infused Documented By: Admin: 09/04/24 08:34 Dose: 100 mls/hr Documented By: NANCI Lactated Ringer's (Lactated Ringers) 1,000 mls @ 999 mls/hr IV .Q1H1M ONE Stop: 09/04/24 08:01 Last Admin: 09/04/24 08:39 Dose: Not Given Documented By: NANCI Non-Admin Reason: Cancelled by Provider Sodium Chloride (Ns) 1,000 mls @ 999 mls/hr IV .Q1H1M ONE Stop: 09/04/24 08:09 Last Infusion: 09/04/24 08:38 Dose: Infused Documented By: Admin: 09/04/24 08:36 Dose: 999 mls/hr Documented By: NANCI Levetiracetam (Levetiracetam Inj 100 Mg/Ml Vial 5ml) 1,000 mg IVP X1 ONE Stop: 09/04/24 06:54 Last Admin: 09/04/24 08:33 Dose: 1,000 mg Documented By: NANCI Midazolam HCl (Midazolam Inj 1 Mg/Ml Vial 2 Ml) 2 mg IVP X1 ONE Stop: 09/04/24 07:00 Last Admin: 09/04/24 10:14 Dose: Not Given Documented By: REGLA Non-Admin Reason: Cancelled by Provider Midazolam HCl (Midazolam Inj 1 Mg/Ml Vial 2 Ml) Confirm Administered Dose 6 mg .ROUTE .STK-MED ONE Stop: 09/04/24 06:55 Last Admin: 09/04/24 07:09 Dose: Not Given Documented By: REGLA Non-Admin Reason: Cancelled by Provider Midazolam HCl (Midazolam Inj 1 Mg/Ml Vial 2 Ml) 2 mg IVP X1 ONE Stop: 09/04/24 07:05 Last Admin: 09/04/24 07:05 Dose: 2 mg Documented By: NANCI Pharmacy Consult (Vancomycin Pharmacy To Dose 1 Each Each) 1 each IV NOW ONE Stop: 09/04/24 06:55 Last Admin: 09/04/24 08:37 Dose: 1 each Documented By: NANCI see above Consultations Consultation(s) initiated? (list below): Yes Consultation #1 (Physician, Specialty, Details): Discussed test HPI, PMHx, lab, radiology results and/or management with resident working with the hospitalist. Will admit for further evaluation and management. Accepts patient for admission. Time: 11:40 Diagnosis Skin/Abscess Differential Diagnosis: other (skin abscess, cellulitis with possible MRSA, and hidradenitis suppurativa) Most likely diagnosis given after review of the tests above:: Cellulitis, Admission Indicated Admission indicated?: indicated Admission Request Was there a request for admission?: Yes Admission Attestation Admission request attestation: Discussed case with [] from Hospitalist service regarding admission. Discussed patients ED course, exam findings, labs, and radiology results. The Hospitalist [agrees,declines] to accept the patient for admission. Disposition Plan Disposition Plan: Admit Critical Care Time Critical Care Time Critical Care Time: Yes Total Critical Care Time (min.): 80 Attestation: The high probability of sudden, clinically significant deterioration in the patient?s condition required the highest level of my preparedness to intervene urgently. The services I provided to this patient were to treat and/or prevent clinically significant deterioration. Services included the following: chart data review, reviewing nursing notes and/or old charts, documentation time, risk consultant collaboration regarding findings and treatment options, medication orders and management, direct patient care, vital sign assessments and ordering, interpreting and reviewing diagnostic studies and lab tests. Aggregate critical care time includes only time during which I was engaged in work directly related to the patient?s care, as described above, whether at bedside or elsewhere in the Emergency Department. It did not include time spent performing other reported procedures or the services of residents, students, nurses or physician assistants. Discharge Plan Plan Patient Disposition: Admit Acute Care w/in Hospital Patient condition on transfer: Stable Prescriptions/Referrals Prescriptions/Med Rec: No Action gabapentin 300 MG capsule 300 mg PO TID Qty: 0 metoprolol tartrate 25 mg tablet 25 tab PO BID albuterol sulfate [ProAir HFA] 90 mcg/actuation HFA aerosol inhaler 1 inh inhalation QID PRN (Reason: shortness of breath or wheezing) Qty: 8.5 0RF prednisone 50 mg tablet 50 mg PO QDAY Qty: 7 0RF levetiracetam 500 mg tablet 500 mg PO BID oxybutynin chloride 5 mg tablet extended release 24hr 5 mg PO DAILY sertraline 25 mg Tablet 50 mg PO HS 30 Days Qty: 60 2RF fluticasone furoate-vilanterol [Breo Ellipta] 100-25 mcg/dose blister with device 1 inh inhalation Q24H Qty: 60 2RF albuterol sulfate 90 mcg/actuation HFA aerosol inhaler 1 inh inhalation QID PRN (Reason: shortness of breath or wheezing) Qty: 8.5 2RF levofloxacin 500 mg tablet 500 mg PO QDAY Qty: 5 0RF prednisone 10 mg tablet See Taper PO QDAY Qty: 10 0RF Taper: Prednisone Taper 20 mg DAILY for 2 Days and 0 Hour 10 mg DAILY for 2 Days and 0 Hour 5 mg DAILY for 7 Days and 0 Hour albuterol sulfate 90 mcg/actuation HFA aerosol inhaler 2 inh inhalation Q4H PRN (Reason: shortness of breath or wheezing) Qty: 8.5 0RF albuterol sulfate 90 mcg/actuation HFA aerosol inhaler 2 puff inhalation QID PRN (Reason: shortness of breath or wheezing) Qty: 8.5 0RF prednisone 50 mg tablet 50 mg PO QDAY Qty: 7 0RF doxycycline monohydrate 100 mg capsule 100 mg PO BID Qty: 10 0RF prednisone 50 mg tablet 50 mg PO QDAY Qty: 3 0RF albuterol sulfate 90 mcg/actuation HFA aerosol inhaler 1 inh inhalation QID PRN (Reason: shortness of breath or wheezing) Qty: 8.5 0RF Rx Instructions: Please dispense with spacer and teaching Referrals: Gopal Fulton MD [Primary Care Provider] - In 1 week Problem List Clinical Impression: Sepsis Patient/Caregiver Discharge Instructions Print Language: Montenegrin Stand Alone Forms: Marisel Award Info., Patient Portal Info Letter
--- NOTE | 2024-09-04 07:03 | PC.NURSE ---
PER DR. CONTRERAS VERBAL ORDER OF 5MG OF VERSED FOR SEIZURE PTS. OVERRIDE OF VERSED WITH LESLY JOHN OF 5MG. WASTED 1MG. PER [address]. CONTRERAS AT BEDSIDE GIVE 1MG OF VERSED, PT IS NOT ACTIVELY SEIZING . 1MG OF VERSED GIVEN. PER DR. CONTRERAS HOLD ON TO THE REST OF THE VERSED, DO NOT WASTE . VERSED WAS GIVEN TO FAYE JOHN.
[2024-09-04] MEDS: MIDAZOLAM INJ 1 MG/ML VIAL 2 ML 2 MG IVP (07:05)
--- NOTE | 2024-09-04 07:05 | XR_ITS ---
Examination: Breast ultrasound, unilateral, right complete Date and time of exam: September 04, 2024 0842 hrs. Indications: Redness pain and swelling with lump in the right axilla beginning last week Technique: Real-time dailey scale ultrasonographic imaging performed right breast including all 4 quadrants as well as nipple retroareolar and axillary region. Findings: Edema in the breast and axillary region, Limited study secondary to patient pain Impression: Limited study Edema in the anterior and lateral breast and axilla, differential would include mastitis, underlying inflammatory breast cancer not excluded Recommend diagnostic mammography follow-up
--- NOTE | 2024-09-04 07:08 | PC.NURSE ---
THE REMAINING OF THE VERSED WAS WASTED. WASTED WAS DOCUMENTED IN [facility] WITH LESLY JOHN
--- NOTE | 2024-09-04 07:12 | XR_ITS ---
Examination: CT chest with intravenous contrast CT abdomen with intravenous contrast CT pelvis with intravenous contrast 2-D coronal and sagittal reconstructions Time of exam: 25, 0928 hrs. Indications: Left chest and breast pain this week, redness and warmth in the right axillary region with low CTDI: vol (mGy) : 17.9 DLP: (mGycm): 1487 Technique: Multiple axial images of the chest, abdomen and pelvis with intravenous contrast, 3.0 mm slice thickness. Images obtained post intravenous injection Isovue 370 60 cc. 2-D sagittal and coronal reconstructions. Low dose protocols were performed. One or more of the following dose reduction techniques were used; automated exposure control, adjustment of the mA and/or KV according to patient size, use of iterative reconstruction technique. Findings: Diffuse edema anterior and lateral right breast without discrete fluid-filled collection Right axillary lymphadenopathy Normal heart size No thoracic aortic aneurysm dilatation No pulmonary artery filling defects on this non-CTA study No pneumonia, pulmonary edema or pleural disease, the largest lymph node 2.5 cm 6 mm pulmonary nodule right upper lobe No visualized liver or splenic lesion Hepatosplenomegaly No gallstones No pancreatic mass Nodular thickening left adrenal gland Severe right renal parenchymal scar formation with 2 mm right renal calculus No hydronephrosis or ureteral calculi No bowel obstruction No pericecal inflammatory change Calcification in the uterus No pelvic mass Bladder intact Significant osteopenia Advanced degenerative disc disease L1-L2, L3-L4 Impression: Diffuse edema in the anterior lateral right breast with axillary lymphadenopathy, differential would include mastitis, inflammatory breast cancer Recommend diagnostic mammography follow-up 60 mm pulmonary nodule right upper lobe, recommend 6 month follow-up CT chest without contrast. Hepatosplenomegaly Severe right renal parenchymal scar formation with 2 mm right renal calculus, no hydronephrosis or ureteral calculi
[2024-09-04 07:14] LABS: Alanine Aminotransferase 273 U/L (10-49); Albumin, Serum 4.2 gm/dL (3.5-5.0); Albumin/Globulin Ratio 1.4 (1.2-2.2); Alkaline Phosphatase 428 U/L (46-116); Anion Gap 9 (7-16); Aspartate Amino Transferase 114 U/L (0-34); BUN/Creatinine Ratio 10 Ratio (12-20); Bilirubin,Total 0.3 mg/dL (0.3-1.2); Blood Urea Nitrogen 10 mg/dL (9-23); Calcium 9.4 mg/dL (8.3-10.6); Calcium (Corrected) 9.4 mg/dL (8.5-10.1); Carbon Dioxide 24.4 mMol/L (20.0-31.0); Chloride 104 mMol/L (98-107); Creatinine (Component) 1.0 mg/dL (0.6-1.3); Estimated Creatinine Clearance 58.8 mL/min (>60); Globulin 3.0 gm/dL (2.3-3.5); Glucose 120 mg/dL (74-106); Osmolality,Calculated 273 (275-295); Potassium 4.2 mMol/L (3.4-5.1); Sodium 137 mMol/L (136-145); Total Protein 7.2 gm/dL (5.7-8.2); eGFR > 60 See Note
[2024-09-04 07:34] LABS: Lactate (Lactic Acid) 0.6 mMol/L (0.4-2.0)
[2024-09-04 07:38] LABS: Basophils # (Auto) 0.0 Thou/mm3 (0.0-0.2); Basophils % (Auto) 0 % (0-2.5); Eosinophils # (Auto) 0.1 Thou/mm3 (0.0-0.5); Eosinophils % (Auto) 1 % (0-10); Hematocrit 36.8 % (36.0-46.0); Hemoglobin 11.8 g/dL (12.0-16.0); Immature Granulocytes Auto 0.05 Thou/mm3 (0.00-0.00); Lymphocytes # (Auto) 1.1 Thou/mm3 (1.0-4.8); Lymphocytes % (Auto) 11 % (10-50); Mean Corpuscular HGB Conc 32.1 g/dl (31.0-37.0); Mean Corpuscular Hemoglobin 29.6 pg (25.0-35.0); Mean Corpuscular Volume 92 fL (80-100); Monocytes # (Auto) 1.1 Thou/mm3 (0.0-0.8); Monocytes % (Auto) 11 % (0-12); Neutrophils # (Auto) 7.9 Thou/mm3 (1.8-7.7); Neutrophils % (Auto) 76 % (37-80); Nucleated Red Blood Cell # 0.00 Thou/mm3 (0.00-0.00); Nucleated Red Blood Cell % 0 /100 WBC (0); Platelet Count 190 Thou/mm3 (140-440); RDW Standard Deviation 47.9 fL (36.4-46.3); Red Blood Count 3.99 Miln/mm3 (4.00-5.20); White Blood Count 10.3 Thou/mm3 (3.6-11.0)
[2024-09-04 07:57] LABS: INR 1.0 (0.9-1.3); Partial Thromboplastin Time 33.0 Seconds (22.0-36.0); Prothrombin Time 10.8 Seconds (9.0-12.2)
[2024-09-04 08:05] LABS: Procalcitonin 0.11 ng/ml (0.0-0.49)
[2024-09-04] MEDS: levETIRAcetam INJ 100 MG/ML VIAL 5ML 1000 MG IVP (08:33)
[2024-09-04] MEDS: MEROPENEM INJ 1,000 MG in SODIUM CHLORIDE 0.9% (Popper) 50 ML 100 MG IV (08:34)
[2024-09-04] MEDS: Vancomycin Inj 1,500 MG in SODIUM CHLORIDE 0.9% 500 ML 500 ML 200 MG IV (08:34)
[2024-09-04] MEDS: SODIUM CHLORIDE 0.9% 1000 ML 1,000 ML 999 ML IV (08:36)
--- NOTE | 2024-09-04 11:58 | ESHP_ITS ---
<Statement entered by Kinjal Gan MD - 09/09/24 07:33> I reviewed above note and agree with findings and plans. I have also personally examined the patient with medicine team and went over assessment and plan with medical team including internal medicine veterinary technician and resident physician. Documentation for date of: 09/04/24 HPI History of Present Illness History of present illness: Ms. Kay is a 54 yo woman with history of seizures (not currently taking Keppra 500 BID), COPD, HTN, psorisis, arthritis, and polysubstance use disorder (meth-used yesterday, and THC-vaping), who presents to the ED for painful R breast swelling with serosang drainage. She states that earlier this week she had first noticed a small bump near her right axilla that she initally thought was an ingrown hair. The bump became more and more painful. She states that her friend had noticed that her right breast was markedly larger than the L breast. When she inspected her breast she was suprised by how red and swollen her R breast was. She went to the doctor on 09/01 for the R breast, who told her she had a bite, and was prescribed Bactrim. Her pain was severe and she reports having relapsed on meth to try to relieve the pain, she states that she snorted a couple of lines of meth, which caused her to feel nauseus and anxious, but did not provide much pain relief. She also reports smoking meth yesterday. She has not noted any nipple discharge. She states that the wound near her axilla has been leaking clear fluid for the past few days. The R breast is extremely tender to palpation. Patient states that she was previously seen by [facility] but that her primary care doctor has since retired and she has been unable to have PCP care. She states that she is not currently taking any medications ROS pt endorses pt denies, fever, chills, [place], n/v, diarrhea, constipation, chest pain, cough, Sx tubal ligation c section Social Hx pt lives at home with her she has remote history of pack a day smoking since she was 12, but reports no current tobacco use she endorses occasional alcohol use She reports occasional THC usage with vape. ED course Dx - WBC wnl, procalciotonin wnl, lactic acid wnl, - Breast Ultrasound Edema in the anterior and lateral breast and axilla, differential would include, mastitis, underlying inflammatory breast cancer not excluded, reccommends diagnostic mammogram - CT chest AP w contrast w diffuse edema anterior and lateral right breast without evidence of abscess, 6.6 mm pulmonary nodule right upper lobe right kidney scarring and a 2 mm right renal calculus without evidence of obstruction. Tx - Vanc - Meropenem - Loading dose of Keppra 1000 - Patient started having a seizure-like activity, shaking, that lasted 30 seconds w/o post ictal state noted by ED provider. Then, following commands and trying to speak. 1 mg of versed was given. Review of Systems Review of Systems Narrative Review of Systems: per HPI Past Medical History Family History OTHER FAMILY HX: Maternal Grandmother with hx of breast cancer Exam Vital Signs Temp Pulse Resp BP Pulse Ox O2 Del Method 99.0 F 88 27 H 106/57 L 95 Room Air 09/04/24 09:50 09/04/24 10:30 09/04/24 10:30 09/04/24 09:50 09/04/24 10:30 09/04/24 09:50 Narrative Exam GENERAL: no acute distress, AAO x3, comfortably laying in bed (shouting in pain when palpating R breast) HEENT: Head AT/ NC. Mucous membranes moist. PERRL. CARDIOVASCULAR: RRR. Normal S1/S2, No m/r/g. No pitting edema of bilateral LEs. CHEST: R axillary/ R breast with punctate area draining straw colored liquid, Bright red errythematous base measuring ~5X10 cm located at 10 oclock, approximately 6 cm from the nipple. nipple without crusting, not inverted, no peau d'orange, breast at 3 oclock is firm and tender to palpation , RESPIRATORY: n; WOB. GASTROINTESTINAL: Abdomen soft, non tender no palpable masses. MUSCULOSKELETAL:? No cyanosis or edema, no visible joint swelling. LLE with toes crossed clinodactyly NEUROLOGICAL: CN II-XII grossly intact. No focal deficits. Sensation intact, symmetric. intermittently closing eyes but easily aroused to voice. PSYCHIATRIC: Awake and alert, not agitated, normal mood and affect. SKIN: BLE 2 cm areas of dry skin on posterior thigh and posterior calf, L foot wounds on dorsal surface and medial malleolus dressed and clean without errythema or pus drainage, Results: Labs 09/04/24 07:28 09/04/24 06:30 Labs: Short CBC 09/04/24 09/04/24 Range/Units 06:30 07:28 WBC 12.2 H 10.3 (3.6-11.0) Thou/mm3 Hgb 13.0 11.8 L (12.0-16.0) g/dL Hct 40.0 36.8 (36.0-46.0) % Plt Count 212 190 (140-440) Thou/mm3 BMP 09/04/24 06:30 Sodium 137 Potassium 4.2 Chloride 104 Carbon Dioxide 24.4 BUN 10 Creatinine 1.0 Glucose 120 H Calcium 9.4 Liver Function 09/04/24 Range/Units 06:30 Total Bilirubin 0.3 (0.3-1.2) mg/dL AST 114 H (0-34) U/L ALT 273 H (10-49) U/L Alkaline Phosphatase 428 H (46-116) U/L Albumin 4.2 (3.5-5.0) gm/dL Quality Measures Quality Measures sepsis Current suspected stage: ruled out Possible source: skin/soft tissue Blood cultures ordered: yes Antibiotic ordered: Yes Medications Home Medications and Allergies Home Medications ?Medication ?Instructions ?Recorded ?Confirmed ?Type gabapentin 300 mg capsule 300 mg PO TID #0 caps 03/23/23 History metoprolol tartrate 25 mg tablet 25 tab PO BID 2 03/23/23 History levetiracetam 500 mg tablet 500 mg PO BID 03/15/2302/01 History oxybutynin chloride 5 mg 5 mg PO DAILY 03/15/2303/23 History tablet,extended release 24 hr Allergies Allergy/AdvReac Type Severity Reaction Status Date / Time Penicillins Allergy Mild RESP.DISTRE Verified 09/04/24 05:39 SS strawberry Allergy Mild HIVES Verified 09/04/24 05:39 tomato Allergy Mild FACIAL Verified 09/04/24 05:39 SWELLING watermelon Allergy Mild BLISTERS Verified 09/04/24 05:39 IN MOUTH Visit Medications Discontinued Medications Hydrocodone Bitart/Acetaminophen (Hydrocodone/Apap 5/325 Tablet) 1 tab PO X1 ONE Stop: 09/04/24 05:55 Last Admin: 09/04/24 05:59 Dose: 1 tab Vancomycin HCl 1,500 mg/ (Sodium Chloride) 500 mls @ 200 mls/hr IV X1 ONE Stop: 09/04/24 10:29 Last Admin: 09/04/24 08:34 Dose: 200 mls/hr Meropenem 1,000 mg/ Sodium (Chloride) 50 mls @ 100 mls/hr IV NOW ONE Stop: 09/04/24 06:55 Last Infusion: 09/04/24 09:09 Dose: Infused Lactated Ringer's (Lactated Ringers) 1,000 mls @ 999 mls/hr IV .Q1H1M ONE Stop: 09/04/24 08:01 Last Admin: 09/04/24 08:39 Dose: Not Given Sodium Chloride (Ns) 1,000 mls @ 999 mls/hr IV .Q1H1M ONE Stop: 09/04/24 08:09 Last Infusion: 09/04/24 08:38 Dose: Infused Levetiracetam (Levetiracetam Inj 100 Mg/Ml Vial 5ml) 1,000 mg IVP X1 ONE Stop: 09/04/24 06:54 Last Admin: 09/04/24 08:33 Dose: 1,000 mg Midazolam HCl (Midazolam Inj 1 Mg/Ml Vial 2 Ml) 2 mg IVP X1 ONE Stop: 09/04/24 07:00 Last Admin: 09/04/24 10:14 Dose: Not Given Midazolam HCl (Midazolam Inj 1 Mg/Ml Vial 2 Ml) 2 mg IVP X1 ONE Stop: 09/04/24 07:05 Last Admin: 09/04/24 07:05 Dose: 2 mg Pharmacy Consult (Vancomycin Pharmacy To Dose 1 Each Each) 1 each IV NOW ONE Stop: 09/04/24 06:55 Last Admin: 09/04/24 08:37 Dose: 1 each Assessment & Plan Plan Ms. Kay is a 54 yo woman with history of seizures (not currently taking Keppra 500 BID), COPD, HTN, psorisis, arthritis, and polysubstance use disorder (meth-used yesterday, and THC-vaping), who presents to the ED for painful R breast c/f cellulitis vs inflammatory breast cancer, she was given bactrim outpatient on 09/01, her symptoms persisted which prompted her to present to the ED, she had episode of seizure like activity in the ED, given versed and loading dose of keppra, she continues on IV abx with Vanc and Cefepime, pending blood cultures and mrsa nares. #R Breast Cellulitis vs Inflammatory breast cancer pt with 1 week of R axillary/R breast errythema and tenderness, c/f cellulitis vs inflammatory breast cancer 5x10 cm area of errythema at 10 oclock about 6 cm from nipple without retraction of breast tissue, no nipple crusting of drainage. no nipple inversion, straw colored drainage. no peau d orange skin. she is not breast feeding which would have raised greater concern for mastitis. pt reports maternal grandmother with hx of breast cancer, her last mammography was in 2021. Left breast without any skin changes, no lumps and no axillary lymphnodes appreciated. Dx - WBC wnl, procalciotonin wnl, lactic acid wnl - Breast Ultrasound Edema in the anterior and lateral breast and axilla, differential would include, mastitis, underlying inflammatory breast cancer not excluded, reccommends diagnostic mammogram - CT chest AP w contrast w diffuse edema anterior and lateral right breast without evidence of abscess, 6.6 mm pulmonary nodule right upper lobe - Bcx pending - MRSA nares pending - consider nipple biopsy if unresponsive to abx Tx - d/c Bactrim, pt was prescribed while outpatient 09/01, too soon to say that patient failed outpatient abx therapy given only completed 2 days of abx. - D/c meropenem 1x 09/04 - cont Vanc (09/04- - cont Cefipime (09/04- #COPD pt with extensive tobacco smoking history since the age of 12, pack a day, unclear when she stopped smoking. she reports she does not currently smoke tobacco reports no home oxygen usage per chart review, it appears she previously took albuterol and steroid inhaler #HTN ctm BP while inpatient and consider starting antihypertensives vs defer to outpatient f/u SBP 130s-160s pt reports she was taking metoprolol previously #Seizures on chart review and per pt she was previously on Keppra, pt has been lost to f/u by PCP, she states that her PCP has retiered at the [facility]. and has been unable to get her home medications Tx - Loading dose Keppra in the ED 1000mg - Keppra 500 mg BID - PCP follow up outpatient for neuro follow up regarding antiseizure medications #Transaminitis pt denies any RUQ pain, no fever, no murphys sign on exam, she is not jaundiced. Dx - CTM LFTs - Hep rapid panel nonreactive - HIV rapid non reactive #Polysubstance Use disorder pt reports prior to the R breast mass she was not using meth. She expresses desire to stop using meth. Of note patient's is unaware of her recent drug use. she reports intermittently vaping THC Dx -Utox (+meth, +cocaine, +benzos) -Uetoh negative Tx - Refer to social work for possible help with cessation Dispo: Home, ongoing IV abx for cellulitis of R breast. Diet: Cardiac Diet Bowel Reg: Senna 1 tab PRN VTE ppx: Heparin 5000 BID GI ppx: 40 protonix qd Code status: Full Case discussed with my attending Dr. Malik Hannah MD PGY-1
[2024-09-04] MEDS: CEFEPIME INJ 2 GM in SODIUM CHLORIDE 0.9% (Popper) 50 ML IV ×2 (13:50→21:11)
[2024-09-04 14:20] LABS: Hepatitis A Antibody IgM Non Reactive (Non React); Hepatitis B Core Antibody IgM Non Reactive (Non React); Hepatitis B Surface Antigen Non Reactive (Non React); Hepatitis C Antibody Non Reactive (Non React)
[2024-09-04 15:19] LABS: HIV (1&2) Antibody Rapid Non-Reactive
--- NOTE | 2024-09-04 15:24 | PC.NURSE ---
Addendum entered by Ladan Magdaleno RN 09/04/24 17:40: Upon review of chart/medical record outpatient antibiotic was bactrim. Original Note: Pt arrived to unit from ED @ 1456 via gurney, requested to use bathroom upon arrival, nonskid socks placed and patient ambulated to bathroom with standby assist. Returned to bed for safety and comfort, seizure pads in place and suction available. Orientation provided regarding room, unit staff and plan of care. Abscess noted under right arm with redness, swelling and tender to touch, no drainage noted. Pt stated was on bactroban as outpatient. During admission questions patient fell asleep multiple times. Awoke with verbal prompting but then quickly fell back asleep.
[2024-09-04 15:31] LABS: HCG Qualitative,Urine Negative
[2024-09-04] MEDS: MORPHINE SULF INJ 10 MG/ML VIAL 2 MG IVP (15:32)
[2024-09-04 15:38] LABS: Alcohol, Urine Negative (Negative); Amphetamine/Methamp Scrn,U Positive (Negative); Barbiturate Screen,Urine Negative (Negative); Benzodiazepines Screen,Urine Positive (Negative); Benzoylecgonine Screen, Ur Positive (Negative); Fentanyl Screen,Urine Negative (Negative); Opiate Screen,Urine Positive (Negative); THC Screen,Urine Negative (Negative)
[2024-09-04] MEDS: HEPARIN SOD INJ 5000 UNIT/ML VIAL SC (21:11)
[2024-09-05] VITALS: BP 136/73; PULSE 91; RESP 18; TEMP 37.6; O2SAT 99
[2024-09-05] MEDS: HYDROcodone/APAP 5/325 TABLET 1 TAB PO ×2 (00:10→13:13)
[2024-09-05 04:00] VITALS: BP 100/61; PULSE 77; RESP 18; TEMP 36.7; O2SAT 96
[2024-09-05] MEDS: CEFEPIME INJ 2 GM in SODIUM CHLORIDE 0.9% (Popper) 50 ML IV ×3 (05:41→21:14)
[2024-09-05 05:44] LABS: Basophils # (Auto) 0.1 Thou/mm3 (0.0-0.2); Basophils % (Auto) 1 % (0-2.5); Eosinophils # (Auto) 0.1 Thou/mm3 (0.0-0.5); Eosinophils % (Auto) 1 % (0-10); Hematocrit 37.3 % (36.0-46.0); Hemoglobin 12.0 g/dL (12.0-16.0); Immature Granulocytes Auto 0.05 Thou/mm3 (0.00-0.00); Lymphocytes # (Auto) 1.5 Thou/mm3 (1.0-4.8); Lymphocytes % (Auto) 16 % (10-50); Mean Corpuscular HGB Conc 32.2 g/dl (31.0-37.0); Mean Corpuscular Hemoglobin 29.6 pg (25.0-35.0); Mean Corpuscular Volume 92 fL (80-100); Monocytes # (Auto) 1.1 Thou/mm3 (0.0-0.8); Monocytes % (Auto) 12 % (0-12); Neutrophils # (Auto) 6.9 Thou/mm3 (1.8-7.7); Neutrophils % (Auto) 71 % (37-80); Nucleated Red Blood Cell # 0.00 Thou/mm3 (0.00-0.00); Nucleated Red Blood Cell % 0 /100 WBC (0); Platelet Count 227 Thou/mm3 (140-440); RDW Standard Deviation 48.2 fL (36.4-46.3); Red Blood Count 4.05 Miln/mm3 (4.00-5.20); White Blood Count 9.8 Thou/mm3 (3.6-11.0)
[2024-09-05 06:02] LABS: Glucose Estimated Average 111 mg/dL (80-131); Hemoglobin A1C 5.5 % Hgb (4.8-6.0)
[2024-09-05 06:19] LABS: Alanine Aminotransferase 243 U/L (10-49); Albumin, Serum 3.7 gm/dL (3.5-5.0); Albumin/Globulin Ratio 1.4 (1.2-2.2); Anion Gap 8 (7-16); Aspartate Amino Transferase 128 U/L (0-34); BUN/Creatinine Ratio 10 Ratio (12-20); Bilirubin,Total 0.4 mg/dL (0.3-1.2); Blood Urea Nitrogen 9 mg/dL (9-23); Calcium 9.2 mg/dL (8.3-10.6); Calcium (Corrected) 9.4 mg/dL (8.5-10.1); Carbon Dioxide 26.5 mMol/L (20.0-31.0); Chloride 105 mMol/L (98-107); Creatinine (Component) 0.9 mg/dL (0.6-1.3); Estimated Creatinine Clearance 93.8 mL/min (>60); Globulin 2.7 gm/dL (2.3-3.5); Glucose 107 mg/dL (74-106); Magnesium 1.6 mg/dL (1.6-2.6); Osmolality,Calculated 276 (275-295); Phosphorous 3.7 mg/dL (2.4-5.1); Potassium 4.2 mMol/L (3.4-5.1); Sodium 139 mMol/L (136-145); Total Protein 6.4 gm/dL (5.7-8.2); eGFR > 60 See Note
[2024-09-05 06:20] LABS: Alkaline Phosphatase 476 U/L (46-116)
--- NOTE | 2024-09-05 07:42 | ESPR_ITS ---
<Statement entered by Kinjal Gan MD - 09/10/24 12:36> I reviewed above note and agree with findings and plans. I have also personally examined the patient with medicine team and went over assessment and plan with medical team including technology internship and resident physician. <Statement entered by Sabas De aL Cruz MD - 09/05/24 14:01> Patient was seen and examined at the bedside. Patient is here for right breast abscess which was seen not to be draining per wound care nurse. Will likely perform ultrasound for right breast to evaluate for any abscess to be drained. Continuing on IV cefepime and vancomycin. Magnesium was repleted. Patient will benefit from outpatient mammogram. Awaiting blood cultures. Continue wound care for now. All labs and orders were reviewed. I discussed and supervised with the technology internship physician who took care of this patient. I personally saw and examined the patient. I agree with most of the assessment and plan. Disclaimer: Despite multiple revisions, due to the dictation software being used, the document bellow may not be free of grammatical errors including phonetic/typographic errors. However, this does not deter from our commitment to providing health care in the patient's best interest in mind. Plan of care discussed with attending Physician Dr. Malik De La Cruz MD PGY-3 Documentation for date of: 09/05/24 Subjective Subjective Interval history: No acute events overnight pt had increased pus drainage from R breast wound, with skin break down. erythema is improving. Wound care consulted Exam Vital Signs Temp Pulse Resp BP Pulse Ox O2 Del Method 98.1 F 77 18 100/61 96 Room Air 09/05/24 04:00 09/05/24 04:00 09/05/24 04:00 09/05/24 04:00 09/05/24 04:00 09/05/24 04:00 Narrative Exam GENERAL: no acute distress, AAO x3, comfortably laying in bed HEENT: Head AT/ NC. Mucous membranes moist. PERRL. CARDIOVASCULAR: RRR. Normal S1/S2, No m/r/g. trace edema of bilateral LEs. CHEST: R axillary/ R breast with skin break down draining straw colored liquid pus and blood from center, feels firm to palpation, errythematous base measuring ~5X10 cm located at 10 oclock, approximately 6 cm from the nipple. nipple without crusting, not inverted, no peau d'orange, breast at 3 oclock is no longer firm and tender to palpation. L breast is unremarkable. RESPIRATORY: n; WOB. GASTROINTESTINAL: Abdomen soft, mildly tender to palpation of RUQ, no palpable masses. MUSCULOSKELETAL:? No cyanosis or edema, no visible joint swelling. LLE with toes crossed clinodactyly NEUROLOGICAL: CN II-XII grossly intact. No focal deficits. Sensation intact, symmetric. PSYCHIATRIC: Awake and alert, not agitated, normal mood and affect. SKIN: BLE scattered 2 cm areas of dry skin on posterior thigh and posterior calf, L foot wounds on dorsal surface and medial malleolus dressed and clean without errythema or pus drainage, Objective Labs 09/05/24 04:50 09/05/24 04:50 Labs: Laboratory Results - last 24 hr 09/04/24 09/04/24 09/04/24 07:28 12:27 14:48 WBC RBC Hgb Hct MCV MCH MCHC RDW Std Deviation Plt Count Neut % (Auto) Lymph % (Auto) [place] % (Auto) Eos % (Auto) Baso % (Auto) Neut # (Auto) Lymph # (Auto) [place] # (Auto) Eos # (Auto) Baso # (Auto) Immature Gran # (Auto) Absolute Nucleated RBC Immature Gran % Nucleated RBC % PT 10.8 INR 1.0 APTT 33.0 Sodium Potassium Chloride Carbon Dioxide Anion Gap BUN Creatinine Estim Creat Clear Calc eGFR BUN/Creatinine Ratio Glucose Estimated Ave Glu mg/dL Hemoglobin A1c Calculated Osmolality Lactic Acid 0.6 Calcium Corrected Calcium Phosphorus Magnesium Total Bilirubin AST ALT Alkaline Phosphatase Total Protein Albumin Globulin Albumin/Globulin Ratio Procalcitonin 0.11 Urine HCG, Qual Negative Urine Opiates Screen Positive A Urine Fentanyl Screen Negative Ur Barbiturates Screen Negative U Amphetamin/Meth Scrn Positive A U Benzodiazepines Scrn Positive A U Cocaine Metab Screen Positive A U Marijuana (THC) Screen Negative Urine Alcohol Negative Hepatitis A IgM Ab Non Reactive Hep Bs Antigen Non Reactive Hep B Core IgM Ab Non Reactive Hepatitis C Antibody Non Reactive HIV 1&2 Antibody Rapid Non-Reactive 09/05/24 04:50 WBC 9.8 RBC 4.05 Hgb 12.0 Hct 37.3 MCV 92 MCH 29.6 MCHC 32.2 RDW Std Deviation 48.2 H Plt Count 227 D Neut % (Auto) 71 Lymph % (Auto) 16 [place] % (Auto) 12 Eos % (Auto) 1 Baso % (Auto) 1 Neut # (Auto) 6.9 Lymph # (Auto) 1.5 [place] # (Auto) 1.1 H Eos # (Auto) 0.1 Baso # (Auto) 0.1 Immature Gran # (Auto) 0.05 H Absolute Nucleated RBC 0.00 Immature Gran % 1 H Nucleated RBC % 0 PT INR APTT Sodium 139 Potassium 4.2 Chloride 105 Carbon Dioxide 26.5 Anion Gap 8 BUN 9 Creatinine 0.9 Estim Creat Clear Calc 93.8 eGFR > 60 BUN/Creatinine Ratio 10 L Glucose [address] Glu mg/dL 111 Hemoglobin A1c 5.5 Calculated Osmolality 276 Lactic Acid Calcium 9.2 Corrected Calcium 9.4 Phosphorus 3.7 Magnesium 1.6 Total Bilirubin 0.4 AST 128 H ALT 243 H Alkaline Phosphatase 476 H D Total Protein 6.4 Albumin 3.7 D Globulin 2.7 Albumin/Globulin Ratio 1.4 Procalcitonin Urine HCG, Qual Urine Opiates Screen Urine Fentanyl Screen Ur Barbiturates Screen U Amphetamin/Meth Scrn U Benzodiazepines Scrn U Cocaine Metab Screen U Marijuana (THC) Screen Urine Alcohol Hepatitis A IgM Ab Hep Bs Antigen Hep B Core IgM Ab Hepatitis C Antibody HIV 1&2 Antibody Rapid Quality Measures Quality Measures sepsis Current suspected stage: ruled out Possible source: skin/soft tissue Blood cultures ordered: yes Antibiotic ordered: Yes Assessment & Plan Assessment Current Active Medications: Generic Name Dose Route Start Last Admin Trade Name Freq PRN Reason Stop Dose Admin Hydrocodone Bitart/Acetaminophen 1 tab 09/04/24 12:41 09/05/24 00:10 Hydrocodone/Apap 5/325 Tablet PO 09/09/24 12:40 1 tab Q4HR PRN Administration PAIN Protocol Heparin Sodium (Porcine) 5,000 unit 09/04/24 21:00 09/04/24 21:11 Heparin Sod Inj 5000 Unit/Ml Vial SC 09/18/24 20:59 5,000 unit Q12HR KIKI Administration Cefepime HCl 2 gm/ Sodium 50 mls @ 100 mls/hr 09/04/24 13:23 09/05/24 05:41 Chloride IV 09/11/24 13:22 100 mls/hr Q8HR KIKI Administration Vancomycin HCl 200 mls @ 120 mls/hr 09/05/24 10:00 Vancomycin/Water 1gm Ivpb IV 09/12/24 09:59 BID@1000,2200 [facility] Protocol Levetiracetam 500 mg 09/05/24 09:00 Levetiracetam Liqd 500 Mg/5 Ml Udc PO 10/05/24 08:59 BID KIKI Morphine Sulfate 2 mg 09/04/24 12:41 09/04/24 15:32 Morphine Sulf Inj 10 Mg/Ml Vial IVP 09/09/24 12:40 2 mg Q4HR PRN Administration Break through pain Protocol Pantoprazole Sodium 40 mg 09/05/24 09:00 Pantoprazole 40 Mg Tablet PO 10/05/24 08:59 QDAY [facility] Pharmacy Consult 1 each 09/05/24 09:00 Vancomycin Pharmacy To Dose 1 Each Each IV 10/05/24 08:59 QDAY PRN consult Polyethylene Glycol 17 gm 09/05/24 09:00 Polyethylene Glycol 17 Gm Packet PO 10/05/24 08:59 QDAY [facility] Sennosides 1 tab 09/04/24 16:08 Senna Tablet PO 10/04/24 16:07 QDAY PRN constipation Protocol Plan Ms. Kay is a 54 yo woman with history of seizures (not currently taking Keppra 500 BID), COPD, HTN, psorisis, arthritis, and polysubstance use disorder (meth-used yesterday, and THC-vaping), who presents to the ED for painful R breast c/f cellulitis vs inflammatory breast cancer, she was given bactrim outpatient on 09/01, her symptoms persisted which prompted her to present to the ED, she had episode of seizure like activity in the ED, given versed and loading dose of keppra, she continues on IV abx with Vanc and Cefepime, BCx NGTD @24 hrs. Wound appears to be draining more with skin peeling. firmer than on admission, plan for repeat breast US right tomorrow to reassess for possible abscess formation. given pt hx of lack of PCP care and difficulty obtaining medications, recommend follow up with academic clinic. #R Breast Cellulitis vs Inflammatory breast cancer pt with 1 week of R axillary/R breast errythema and tenderness, c/f cellulitis vs inflammatory breast cancer 5x10 cm area of errythema at 10 oclock about 6 cm from nipple without retraction of breast tissue, no nipple crusting of drainage. no nipple inversion, straw colored drainage. no peau d orange skin. she is not breast feeding which would have raised greater concern for mastitis. pt reports maternal grandmother with hx of breast cancer, her last mammography was in 2021. Left breast without any skin changes, no lumps and no axillary lymphnodes appreciated. -pt appears to be improving on IV abx, on exam she has increased drainage from wound with some skin breakdown, Dx - WBC wnl, procalciotonin wnl, lactic acid wnl - Breast Ultrasound Edema in the anterior and lateral breast and axilla, differential would include, mastitis, underlying inflammatory breast cancer not excluded, reccommends diagnostic mammogram - Repeat Breast US @48 hours to reassess for abscess given change in firmness on exam . - CT chest AP w contrast w diffuse edema anterior and lateral right breast without evidence of abscess, 6.6 mm pulmonary nodule right upper lobe - Bcx NGTD @24 hrs - consider nipple biopsy if unresponsive to abx - recommend outpatient mammography. Tx - d/c Bactrim, pt was prescribed while outpatient 09/01, too soon to say that patient failed outpatient abx therapy given only completed 2 days of abx. - D/c meropenem 1x 09/04 - cont Vanc (09/04- - cont Cefipime (09/04- - Consult wound care, appreciate recs #COPD pt with extensive tobacco smoking history since the age of 12, pack a day, unclear when she stopped smoking. she reports she does not currently smoke tobacco reports no home oxygen usage per chart review, it appears she previously took albuterol and steroid inhaler #HTN ctm BP while inpatient and consider starting antihypertensives vs defer to outpatient f/u SBP wnls pt reports she was taking metoprolol previously #Seizures on chart review and per pt she was previously on Keppra, pt has been lost to f/u by PCP, she states that her PCP has retiered at the [facility]. and has been unable to get her home medications Tx - Loading dose Keppra in the ED 1000mg - Keppra 500 mg BID - PCP follow up outpatient for neuro follow up regarding antiseizure medications #Fatty Liver on US #Transaminitis pt initially denies any RUQ pain, no fever, no murphys sign on exam, she is not jaundiced. pt on exam with RUQ pain, GB US limited given pt was not fasted. Dx - CTM LFTs - Hep rapid panel nonreactive - HIV rapid non reactive - GB US: Repeat the gallbladder portion of the study with fasting (imgage was taken at 1300) Contracted gallbladder Common bile duct 0.2 cm Pancreatic head 3.5 cm Liver 20.1 cm fatty infiltration Normal hepatopedal portal venous flow #Polysubstance Use disorder pt reports prior to the R breast mass she was not using meth. She expresses desire to stop using meth. Of note patient's is unaware of her recent drug use. she reports intermittently vaping THC Dx -Utox (+meth, +cocaine, +benzos) -Uetoh negative Tx - Refer to social work for possible help with cessation Dispo: Home, ongoing IV abx for cellulitis of R breast. pending repeat breast US right, bcx pending. Diet: Cardiac Diet Bowel Reg: Senna 1 tab PRN lactulose 1x 30 VTE ppx: Heparin 5000 BID GI ppx: 40 protonix qd Code status: Full Case discussed with my senior resident Dr. De La Cruz Case discussed with my attending Dr. Malik Hannah MD PGY-1
[2024-09-05 08:00] VITALS: BP 134/91; PULSE 83; RESP 18; TEMP 36.2; O2SAT 94
--- NOTE | 2024-09-05 08:24 | XR_ITS ---
Examination: Abdomen sonogram, Limited Date and time of exam: September 05, 2024, 1315 hours INDICATIONS: Elevated liver function tests on laboratory examination beginning 2 days ago with right upper abdominal pain Technique: Real-time dailey scale transabdominal sonographic images of the upper abdomen obtained. Findings: Contracted gallbladder Common bile duct 0.2 cm Pancreatic head 3.5 cm Liver 20.1 cm fatty infiltration Normal hepatopedal portal venous flow IVC obscured by bowel gas IMPRESSION: Repeat the gallbladder portion of the study with fasting
[2024-09-05] MEDS: Magnesium Sulfate 4 GM Ivpb 4 GM/50 ML BAG IV (09:20)
[2024-09-05] MEDS: HEPARIN SOD INJ 5000 UNIT/ML VIAL SC ×2 (09:21→21:14)
[2024-09-05] MEDS: levETIRAcetam LIQD 500 MG/5 ML UDC PO ×2 (09:21→21:14)
[2024-09-05] MEDS: PANTOPRAZOLE 40 MG TABLET PO (09:21)
[2024-09-05] MEDS: POLYETHYLENE GLYCOL 17 GM PACKET PO (09:22)
--- NOTE | 2024-09-05 10:19 | PC.SS ---
SS rounding note: Blood cultures pending, SS will follow up with patient in regards to discharge plan.
[2024-09-05] MEDS: MORPHINE SULF INJ 10 MG/ML VIAL 2 MG IVP (10:52)
[2024-09-05] MEDS: VANCOMYCIN/WATER 1GM IVPB 200 ML IV ×2 (10:54→21:56)
--- NOTE | 2024-09-05 11:15 | PC.SS ---
Patient Rema Kay is a 54 Year old female admitted for Cellulitis. SS met with patient at bedside to discuss discharge plan. Patient reports she lives at home with her life partner, Vince Winslow who she reports is her surrogate decision maker, [phone]. Patient does not utilize any source of DME to assist with ambulation. Choice of pharmacy is [facility]. At time of discharge patient will return back home, life partner will provide transportation. Next of kin: Life partner, Vince Marieoria [phone] Discharge Plan: Home
[2024-09-05 12:00] VITALS: BP 107/59; PULSE 70; RESP 17; TEMP 36.2; O2SAT 95
[2024-09-05 15:08] VITALS: BMI 37.0
[2024-09-05 16:00] VITALS: BP 119/73; PULSE 75; RESP 18; TEMP 36.3; O2SAT 97
[2024-09-05] MEDS: LACTULOSE SYRUP 20 GM/30 ML UDC PO (17:48)
[2024-09-05 20:00] VITALS: BP 164/81; PULSE 87; RESP 16; TEMP 36.1; O2SAT 97
[2024-09-05] MEDS: SILVER SULFADIAZINE CR 1% 25 GM TUBE TOP (21:14)
[2024-09-06] VITALS: BP 121/64; PULSE 80; RESP 16; TEMP 36.1; O2SAT 96
[2024-09-06] MEDS: HYDROcodone/APAP 5/325 TABLET 1 TAB PO ×2 (00:20→19:47)
--- NOTE | 2024-09-06 00:41 | PC.NURSE ---
upon obtaining the pts med rec, pt stated that she hasn't taken any home medications in over a month due to her PCP leaving and has not been able to get a new PCP to restart meds. pt could not recall what home meds she was taking previously besides keppra, however did not know the dosage and frequency.
[2024-09-06 04:00] VITALS: BP 137/63; PULSE 75; RESP 16; TEMP 36.2; O2SAT 97
[2024-09-06] MEDS: CEFEPIME INJ 2 GM in SODIUM CHLORIDE 0.9% (Popper) 50 ML IV (05:08)
[2024-09-06 05:50] LABS: Basophils # (Auto) 0.1 Thou/mm3 (0.0-0.2); Basophils % (Auto) 1 % (0-2.5); Eosinophils # (Auto) 0.2 Thou/mm3 (0.0-0.5); Eosinophils % (Auto) 2 % (0-10); Hematocrit 38.5 % (36.0-46.0); Hemoglobin 12.2 g/dL (12.0-16.0); Immature Granulocytes Auto 0.10 Thou/mm3 (0.00-0.00); Lymphocytes # (Auto) 1.4 Thou/mm3 (1.0-4.8); Lymphocytes % (Auto) 18 % (10-50); Mean Corpuscular HGB Conc 31.7 g/dl (31.0-37.0); Mean Corpuscular Hemoglobin 29.3 pg (25.0-35.0); Mean Corpuscular Volume 93 fL (80-100); Monocytes # (Auto) 0.9 Thou/mm3 (0.0-0.8); Monocytes % (Auto) 12 % (0-12); Neutrophils # (Auto) 5.2 Thou/mm3 (1.8-7.7); Neutrophils % (Auto) 67 % (37-80); Nucleated Red Blood Cell # 0.00 Thou/mm3 (0.00-0.00); Nucleated Red Blood Cell % 0 /100 WBC (0); Platelet Count 233 Thou/mm3 (140-440); RDW Standard Deviation 48.8 fL (36.4-46.3); Red Blood Count 4.16 Miln/mm3 (4.00-5.20); White Blood Count 7.8 Thou/mm3 (3.6-11.0)
[2024-09-06 06:18] LABS: Alanine Aminotransferase 279 U/L (10-49); Albumin, Serum 3.7 gm/dL (3.5-5.0); Albumin/Globulin Ratio 1.3 (1.2-2.2); Alkaline Phosphatase 534 U/L (46-116); Anion Gap 10 (7-16); Aspartate Amino Transferase 171 U/L (0-34); BUN/Creatinine Ratio 12 Ratio (12-20); Bilirubin,Total 0.3 mg/dL (0.3-1.2); Blood Urea Nitrogen 11 mg/dL (9-23); Calcium 9.2 mg/dL (8.3-10.6); Calcium (Corrected) 9.4 mg/dL (8.5-10.1); Carbon Dioxide 25.2 mMol/L (20.0-31.0); Chloride 105 mMol/L (98-107); Creatinine (Component) 0.9 mg/dL (0.6-1.3); Estimated Creatinine Clearance 92.3 mL/min (>60); Globulin 2.9 gm/dL (2.3-3.5); Glucose 120 mg/dL (74-106); Magnesium 1.9 mg/dL (1.6-2.6); Osmolality,Calculated 279 (275-295); Phosphorous 3.6 mg/dL (2.4-5.1); Potassium 4.3 mMol/L (3.4-5.1); Sodium 140 mMol/L (136-145); Total Protein 6.6 gm/dL (5.7-8.2); eGFR > 60 See Note
[2024-09-06 08:00] VITALS: BP 116/64; PULSE 70; RESP 18; TEMP 36.4; O2SAT 94
--- NOTE | 2024-09-06 08:00 | XR_ITS ---
Examination: Breast ultrasound, unilateral, right Date and time of exam: September 06, 2024, 1612 hours INDICATIONS: Redness swelling and pain with palpable lump in the right axillary region noted as beginning one week ago, ultrasound September 04, 2024 edema in the breast and axillary region Technique: Real-time dailey scale ultrasonographic imaging performed right breast including all 4 quadrants as well as nipple retroareolar and axillary region. Findings: Irregular edema in the 10 to 11:00 position, 17 x 26 x 33 mm IMPRESSION: BI-RADS Category 0: Incomplete: Need additional imaging evaluation Recommend diagnostic mammography follow-up to exclude inflammatory right breast cancer
--- NOTE | 2024-09-06 08:21 | ESPR_ITS ---
<Statement entered by Kinjal Gan MD - 09/10/24 12:38> I reviewed above note and agree with findings and plans. I have also personally examined the patient with medicine team and went over assessment and plan with medical team including sport internship and resident physician. <Statement entered by Sabas De La Cruz MD - 09/06/24 14:50> Patient was seen and examined at the bedside.Patient was NPO to get US Gall bladder and was having purulent discharge from the breast tissue. F/U with US Rt breast and Gall bladder. She appears sleepy likely due to pain meds and meth use hx. IV pain med was dced. Continue levaquin and vancomycin. BCx are negative x 48h. All labs and order reviewed. I discussed and supervised with the sport internship physician who took care of this patient. I personally saw and examined the patient. I agree with most of the assessment and plan. Disclaimer: Despite multiple revisions, due to the dictation software being used, the document bellow may not be free of grammatical errors including phonetic/typographic errors. However, this does not deter from our commitment to providing health care in the patient's best interest in mind. Plan of care discussed with attending Physician Dr. Malik De La Cruz MD PGY-3 Documentation for date of: 09/06/24 Subjective Subjective Interval history: No acute events overnight pt R breast wound with increased drainage, plan for repeat Breast ultrasound today pt intermittently somnolent, c/f coming down off of recent meth use pt tearful and expresses desire to leave the hospital, stating that she is hungry (pt npo for repeat gb us) hydroxizine given 1x 25 PO. Exam Vital Signs Temp Pulse Resp BP Pulse Ox O2 Del Method 97.1 F 75 16 137/63 H 97 Room Air 09/06/24 04:00 09/06/24 04:00 09/06/24 04:00 09/06/24 04:00 09/06/24 04:00 09/06/24 04:00 Narrative Exam GENERAL: no acute distress, AAO x3, comfortably laying in bed tearful HEENT: Head AT/ NC. Mucous membranes moist. PERRL. CARDIOVASCULAR: RRR. Normal S1/S2, No m/r/g. trace edema of bilateral LEs. CHEST: R axillary/ R breast with skin break down draining straw colored liquid pus and blood from center, feels firm to palpation, errythematous base much improved from prior measuring ~5X10 cm located at 10 oclock, approximately 6 cm from the nipple. nipple without crusting, not inverted, no peau d'orange, breast at 3 oclock is no longer firm and tender to palpation. L breast is unremarkable.increased drainage of pus and fluid RESPIRATORY: n; WOB. GASTROINTESTINAL: Abdomen soft, mildly tender to palpation of RUQ, no palpable masses. MUSCULOSKELETAL:? No cyanosis or edema, no visible joint swelling. LLE with toes crossed clinodactyly NEUROLOGICAL: CN II-XII grossly intact. No focal deficits. Sensation intact, symmetric. PSYCHIATRIC: Awake and alert, mildly agitated and tearful, expresses desire to leave and desire to eat. SKIN: BLE scattered 2 cm areas of dry skin on posterior thigh and posterior calf, L foot wounds on dorsal surface and medial malleolus dressed and clean without errythema or pus drainage, Objective Labs 09/06/24 04:50 09/06/24 04:50 Labs: Laboratory Results - last 24 hr 09/06/24 04:50 WBC 7.8 RBC 4.16 Hgb 12.2 Hct 38.5 MCV 93 MCH 29.3 MCHC 31.7 RDW Std Deviation 48.8 H Plt Count 233 Neut % (Auto) 67 Lymph % (Auto) 18 [place] % (Auto) 12 Eos % (Auto) 2 Baso % (Auto) 1 Neut # (Auto) 5.2 Lymph # (Auto) 1.4 [place] # (Auto) 0.9 H Eos # (Auto) 0.2 Baso # (Auto) 0.1 Immature Gran # (Auto) 0.10 H Absolute Nucleated RBC 0.00 Immature Gran % 1 H Nucleated RBC % 0 Sodium 140 Potassium 4.3 Chloride 105 Carbon Dioxide 25.2 Anion Gap 10 BUN 11 Creatinine 0.9 Estim Creat Clear Calc 92.3 eGFR > 60 BUN/Creatinine Ratio 12 Glucose 120 H Calculated Osmolality 279 Calcium 9.2 Corrected Calcium 9.4 Phosphorus 3.6 Magnesium 1.9 Total Bilirubin 0.3 AST 171 H ALT 279 H Alkaline Phosphatase 534 H D Total Protein 6.6 Albumin 3.7 Globulin 2.9 Albumin/Globulin Ratio 1.3 Quality Measures Quality Measures sepsis Current suspected stage: ruled out Possible source: skin/soft tissue Blood cultures ordered: yes Antibiotic ordered: Yes Assessment & Plan Assessment Current Active Medications: Generic Name Dose Route Start Last Admin Trade Name Freq PRN Reason Stop Dose Admin Hydrocodone Bitart/Acetaminophen 1 tab 09/04/24 12:41 09/06/24 00:20 Hydrocodone/Apap 5/325 Tablet PO 09/09/24 12:40 1 tab Q4HR PRN Administration PAIN Protocol Heparin Sodium (Porcine) 5,000 unit 09/04/24 21:00 09/05/24 21:14 Heparin Sod Inj 5000 Unit/Ml Vial SC 09/18/24 20:59 5,000 unit Q12HR KIKI Administration Cefepime HCl 2 gm/ Sodium 50 mls @ 100 mls/hr 09/04/24 13:23 09/06/24 05:08 Chloride IV 09/11/24 13:22 100 mls/hr Q8HR KIKI Administration Vancomycin HCl 200 mls @ 120 mls/hr 09/05/24 10:00 09/05/24 23:37 Vancomycin/Water 1gm Ivpb IV 09/12/24 09:59 Infused BID@1000,2200 KIKI Infusion Protocol Levetiracetam 500 mg 09/05/24 09:00 09/05/24 21:14 Levetiracetam Liqd 500 Mg/5 Ml Udc PO 10/05/24 08:59 500 mg BID KIKI Administration Morphine Sulfate 2 mg 09/04/24 12:41 09/05/24 10:52 Morphine Sulf Inj 10 Mg/Ml Vial IVP 09/09/24 12:40 2 mg Q4HR PRN Administration Break through pain Protocol Pantoprazole Sodium 40 mg 09/05/24 09:00 09/05/24 09:21 Pantoprazole 40 Mg Tablet PO 10/05/24 08:59 40 mg QDAY KIKI Administration Pharmacy Consult 1 each 09/05/24 09:00 Vancomycin Pharmacy To Dose 1 Each Each IV 10/05/24 08:59 QDAY PRN consult Polyethylene Glycol 17 gm 09/05/24 09:00 09/05/24 09:22 Polyethylene Glycol 17 Gm Packet PO 10/05/24 08:59 17 gm QDAY KIKI Administration Sennosides 1 tab 09/04/24 16:08 Senna Tablet PO 10/04/24 16:07 QDAY PRN constipation Protocol Silver Sulfadiazine 0 gm 09/05/24 21:00 09/05/24 21:14 Silver Sulfadiazine Cr 1% 25 Gm Tube TOP 09/12/24 20:59 1 applicatio BID [facility] Administration Plan Ms. Kay is a 54 yo woman with history of seizures (not currently taking Keppra 500 BID), COPD, HTN, psorisis, arthritis, and polysubstance use disorder (meth-used yesterday, and THC-vaping), who presents to the ED for painful R breast c/f cellulitis vs inflammatory breast cancer, she was given bactrim outpatient on 09/01, her symptoms persisted which prompted her to present to the ED, she had episode of seizure like activity in the ED, given versed and loading dose of keppra, sd/c Cefepime (given c/f cholestatic pattern elevation of LFT 2/2 abx ), query acalculus cholecystitis, BCx NGTD @48 hrs. Wound appears to be draining more pus and fluid. firmer than on admission, pending repeat US of R breast to r/o abscess, and pending fasted GB US. Continues on vanc and levoflox. pt increasingly agitated during hospital stay requiring 1x hydroxizine. given pt hx of lack of PCP care and difficulty obtaining medications, recommend follow up with academic clinic. #R Breast Cellulitis vs abscess pt with 1 week of R axillary/R breast errythema and tenderness, c/f cellulitis vs inflammatory breast cancer 5x10 cm area of errythema at 10 oclock about 6 cm from nipple without retraction of breast tissue, no nipple crusting of drainage. no nipple inversion, straw colored drainage. no peau d orange skin. she is not breast feeding which would have raised greater concern for mastitis. pt reports maternal grandmother with hx of breast cancer, her last mammography was in 2021. Left breast without any skin changes, no lumps and no axillary lymphnodes appreciated. -pt appears to be improving on IV abx, on exam she has increased drainage from wound with some skin breakdown, Dx - WBC wnl, procalciotonin wnl, lactic acid wnl - Breast Ultrasound Edema in the anterior and lateral breast and axilla, differential would include, mastitis, underlying inflammatory breast cancer not excluded, reccommends diagnostic mammogram - Repeat Breast US pending to r/o abscess. - CT chest AP w contrast w diffuse edema anterior and lateral right breast without evidence of abscess, 6.6 mm pulmonary nodule right upper lobe - Bcx NGTD @24 hrs - consider biopsy if unresponsive to abx - recommend outpatient mammography. Tx - d/c Bactrim, pt was prescribed while outpatient 09/01, too soon to say that patient failed outpatient abx therapy given only completed 2 days of abx. - D/c meropenem 1x 09/04 - cont Vanc (09/04- - start levoflox (09/06- - d/c Cefipime (09/04-09/06) given transaminitis c/f cholestasis. - Consult wound care, appreciate recs #COPD pt with extensive tobacco smoking history since the age of 12, pack a day, unclear when she stopped smoking. she reports she does not currently smoke tobacco reports no home oxygen usage per chart review, it appears she previously took albuterol and steroid inhaler #HTN ctm BP while inpatient and consider starting antihypertensives vs defer to outpatient f/u SBP wnls pt reports she was taking metoprolol previously #Seizures on chart review and per pt she was previously on Keppra, pt has been lost to f/u by PCP, she states that her PCP has retiered at [facility]. and has been unable to get her home medications Tx - Loading dose Keppra in the ED 1000mg - Keppra 500 mg BID - PCP follow up outpatient for neuro follow up regarding antiseizure medications #Fatty Liver on US #Transaminitis Cholestatic pattern, query 2/2 acalculus cholecystitis vs cefepime induced pt initially denies any RUQ pain, no fever, no murphys sign on exam, she is not jaundiced. pt on exam with RUQ pain, GB US limited given pt was not fasted. Dx - CTM LFTs reassess LFTs tomorrow after d/c of cefepime - Hep rapid panel nonreactive - HIV rapid non reactive - GB US: pending repeat imaging given GB was previously contracted on US. (pt fasting) #Polysubstance Use disorder pt reports prior to the R breast mass she was not using meth. She expresses desire to stop using meth. Of note patient's is unaware of her recent drug use. she reports intermittently vaping THC 09/06 pt increasingly agitated and tearful, query washout from recent meth use. Dx -Utox (+meth, +cocaine, +benzos) -Uetoh negative Tx - Refer to social work for possible help with cessation -1x hydroxizine 25mg PO for agitation Dispo: Home, ongoing IV abx for cellulitis of R breast. pending repeat breast US right, bcx NGTD, pending repeat fasted GB US.. Diet: Cardiac Diet (fasted for GB US) Bowel Reg: Senna 1 tab PRN lactulose PRN VTE ppx: Heparin 5000 BID GI ppx: 40 protonix qd Code status: Full Case discussed with my senior resident Dr. De La Cruz Case discussed with my attending Dr. Malik Hannah MD PGY-1
[2024-09-06] MEDS: levETIRAcetam LIQD 500 MG/5 ML UDC PO ×2 (09:07→20:43)
[2024-09-06] MEDS: PANTOPRAZOLE 40 MG TABLET PO (09:07)
[2024-09-06] MEDS: POLYETHYLENE GLYCOL 17 GM PACKET PO (09:07)
[2024-09-06] MEDS: HEPARIN SOD INJ 5000 UNIT/ML VIAL SC ×2 (09:07→20:42)
[2024-09-06] MEDS: SILVER SULFADIAZINE CR 1% 25 GM TUBE TOP ×2 (09:31→20:43)
[2024-09-06] MEDS: MORPHINE SULF INJ 10 MG/ML VIAL 2 MG IVP ×2 (09:55→22:41)
[2024-09-06 10:07] LABS: Vancomycin,Trough 8.4 mcg/mL (5.0-10.0)
[2024-09-06] MEDS: VANCOMYCIN/WATER 1250 MG IVPB 250 ML 120 MG IV ×2 (10:43→21:37)
[2024-09-06] MEDS: LEVOFLOXACIN/D5W 750MG IVPB 750 MG/150 ML BAG 100 MG IV (11:32)
[2024-09-06 12:00] VITALS: BP 143/75; PULSE 74; RESP 17; TEMP 36.2; O2SAT 95
--- NOTE | 2024-09-06 13:00 | XR_ITS ---
Examination: Abdomen sonogram, Limited Date and time of exam: September 06, 2024, 1619 hours INDICATIONS: Elevated liver function tests on laboratory examination performed yesterday. Technique: Real-time dailey scale transabdominal sonographic images of the upper abdomen obtained. Findings: Normal gallbladder Normal common bile 0.3 cm Pancreatic head 3.4 cm Liver 18.8 cm fatty infiltration Normal hepatopedal portal venous Patent IVC IMPRESSION: Normal gallbladder Normal common bile duct Mild hepatomegaly fatty infiltration
--- NOTE | 2024-09-06 15:37 | PC.NURSE ---
PATIENT HAVING AN EMOTIONAL CRISIS AFTER SHE WAS DIRECTED BACK TO THE ROOM AFTER GUEST SERVICES MANAGER SAW HER UNSTEADY ON HER FEET. DR. SANTIAGO MADE AWARE AND IS AT BEDSIDE.
[2024-09-06 20:00] VITALS: BP 119/86; PULSE 91; RESP 20; TEMP 36.6; O2SAT 92
[2024-09-07] VITALS: BP 110/76; PULSE 77; RESP 19; TEMP 36.8; O2SAT 92
[2024-09-07 04:00] VITALS: BP 143/80; PULSE 71; RESP 18; TEMP 37; O2SAT 95
[2024-09-07 04:39] LABS: Basophils # (Auto) 0.1 Thou/mm3 (0.0-0.2); Basophils % (Auto) 1 % (0-2.5); Eosinophils # (Auto) 0.2 Thou/mm3 (0.0-0.5); Eosinophils % (Auto) 3 % (0-10); Hematocrit 37.3 % (36.0-46.0); Hemoglobin 11.7 g/dL (12.0-16.0); Immature Granulocytes Auto 0.24 Thou/mm3 (0.00-0.00); Lymphocytes # (Auto) 1.6 Thou/mm3 (1.0-4.8); Lymphocytes % (Auto) 24 % (10-50); Mean Corpuscular HGB Conc 31.4 g/dl (31.0-37.0); Mean Corpuscular Hemoglobin 29.1 pg (25.0-35.0); Mean Corpuscular Volume 93 fL (80-100); Monocytes # (Auto) 0.9 Thou/mm3 (0.0-0.8); Monocytes % (Auto) 13 % (0-12); Neutrophils # (Auto) 3.8 Thou/mm3 (1.8-7.7); Neutrophils % (Auto) 56 % (37-80); Nucleated Red Blood Cell # 0.00 Thou/mm3 (0.00-0.00); Nucleated Red Blood Cell % 0 /100 WBC (0); Platelet Count 256 Thou/mm3 (140-440); RDW Standard Deviation 48.1 fL (36.4-46.3); Red Blood Count 4.02 Miln/mm3 (4.00-5.20); White Blood Count 6.8 Thou/mm3 (3.6-11.0)
[2024-09-07 04:58] LABS: Alanine Aminotransferase 251 U/L (10-49); Albumin, Serum 3.6 gm/dL (3.5-5.0); Albumin/Globulin Ratio 1.2 (1.2-2.2); Alkaline Phosphatase 549 U/L (46-116); Anion Gap 8 (7-16); Aspartate Amino Transferase 132 U/L (0-34); BUN/Creatinine Ratio 14 Ratio (12-20); Bilirubin,Total 0.3 mg/dL (0.3-1.2); Blood Urea Nitrogen 13 mg/dL (9-23); Calcium 9.2 mg/dL (8.3-10.6); Calcium (Corrected) 9.5 mg/dL (8.5-10.1); Carbon Dioxide 29.3 mMol/L (20.0-31.0); Chloride 104 mMol/L (98-107); Creatinine (Component) 0.9 mg/dL (0.6-1.3); Estimated Creatinine Clearance 92.3 mL/min (>60); Globulin 2.9 gm/dL (2.3-3.5); Glucose 129 mg/dL (74-106); Magnesium 1.8 mg/dL (1.6-2.6); Osmolality,Calculated 283 (275-295); Phosphorous 3.7 mg/dL (2.4-5.1); Potassium 4.2 mMol/L (3.4-5.1); Sodium 141 mMol/L (136-145); Total Protein 6.5 gm/dL (5.7-8.2); eGFR > 60 See Note
[2024-09-07 07:40] VITALS: BP 150/87; PULSE 76; RESP 15; TEMP 37.1; O2SAT 95
--- NOTE | 2024-09-07 08:09 | PD.RESPRO ---
Documentation for date of: 09/07/24 Exam Vital Signs Temp Pulse Resp BP Pulse Ox O2 Del Method 98.7 F 76 15 150/87 H 95 Room Air 09/07/24 07:40 09/07/24 07:40 09/07/24 07:40 09/07/24 07:40 09/07/24 07:40 09/07/24 07:40 Objective Labs 09/07/24 04:11 09/07/24 04:11 Labs: Laboratory Results - last 24 hr 09/06/24 09/07/24 09:17 04:11 WBC 6.8 RBC 4.02 Hgb 11.7 L Hct 37.3 MCV 93 MCH 29.1 MCHC 31.4 RDW Std Deviation 48.1 H Plt Count 256 Neut % (Auto) 56 Lymph % (Auto) 24 [place] % (Auto) 13 H Eos % (Auto) 3 Baso % (Auto) 1 Neut # (Auto) 3.8 Lymph # (Auto) 1.6 [place] # (Auto) 0.9 H Eos # (Auto) 0.2 Baso # (Auto) 0.1 Immature Gran # (Auto) 0.24 H Absolute Nucleated RBC 0.00 Immature Gran % 4 H Nucleated RBC % 0 Sodium 141 Potassium 4.2 Chloride 104 Carbon Dioxide 29.3 Anion Gap 8 BUN 13 Creatinine 0.9 Estim Creat Clear Calc 92.3 eGFR > 60 BUN/Creatinine Ratio 14 Glucose 129 H Calculated Osmolality 283 Calcium 9.2 Corrected Calcium 9.5 Phosphorus 3.7 Magnesium 1.8 Total Bilirubin 0.3 AST 132 H ALT 251 H Alkaline Phosphatase 549 H Total Protein 6.5 Albumin 3.6 Globulin 2.9 Albumin/Globulin Ratio 1.2 Vancomycin Trough 8.4 Quality Measures Quality Measures sepsis Possible source: skin/soft tissue Blood cultures ordered: yes Assessment & Plan Assessment Current Active Medications: Generic Name Dose Route Start Last Admin Trade Name Freq PRN Reason Stop Dose Admin Hydrocodone Bitart/Acetaminophen 1 tab 09/04/24 12:41 09/06/24 19:47 Hydrocodone/Apap 5/325 Tablet PO 09/09/24 12:40 1 tab Q4HR PRN Administration PAIN Protocol Heparin Sodium (Porcine) 5,000 unit 09/04/24 21:00 09/06/24 20:42 Heparin Sod Inj 5000 Unit/Ml Vial SC 09/18/24 20:59 5,000 unit Q12HR KIKI Administration Vancomycin HCl 250 mls @ 120 mls/hr 09/06/24 10:00 09/06/24 21:37 Vancomycin/Water 1250 Mg Ivpb IV 09/13/24 09:59 120 mls/hr Q12H KIKI Administration Protocol Levofloxacin/Dextrose 750 mg in 150 mls @ 100 mls/hr 09/06/24 11:00 09/06/24 11:32 Levaquin Ivpb IV 09/13/24 10:59 100 mls/hr QDAY KIKI Administration Magnesium Sulfate 4 gm in 50 mls @ 12.5 mls/hr 09/07/24 08:03 Magnesium Sulfate Ivpb IV 09/07/24 12:02 X1 ONE Levetiracetam 500 mg 09/05/24 09:00 09/06/24 20:43 Levetiracetam Liqd 500 Mg/5 Ml Udc PO 10/05/24 08:59 500 mg BID KIKI Administration Morphine Sulfate 2 mg 09/07/24 08:05 Morphine Sulf Inj 10 Mg/Ml Vial IVP 09/12/24 08:04 Q6HR PRN PAIN Pantoprazole Sodium 40 mg 09/05/24 09:00 09/06/24 09:07 Pantoprazole 40 Mg Tablet PO 10/05/24 08:59 40 mg QDAY KIKI Administration Pharmacy Consult 1 each 09/05/24 09:00 Vancomycin Pharmacy To Dose 1 Each Each IV 10/05/24 08:59 QDAY PRN consult Polyethylene Glycol 17 gm 09/05/24 09:00 09/06/24 09:07 Polyethylene Glycol 17 Gm Packet PO 10/05/24 08:59 17 gm QDAY KIKI Administration Sennosides 1 tab 09/04/24 16:08 Senna Tablet PO 10/04/24 16:07 QDAY PRN constipation Protocol Silver Sulfadiazine 0 gm 09/05/24 21:00 09/06/24 20:43 Silver Sulfadiazine Cr 1% 25 Gm Tube TOP 09/12/24 20:59 1 applicatio BID KIKI Administration
[2024-09-07] MEDS: HEPARIN SOD INJ 5000 UNIT/ML VIAL SC (09:36)
[2024-09-07] MEDS: levETIRAcetam LIQD 500 MG/5 ML UDC PO (09:36)
[2024-09-07] MEDS: LEVOFLOXACIN/D5W 750MG IVPB 750 MG/150 ML BAG 100 MG IV (09:36)
[2024-09-07] MEDS: PANTOPRAZOLE 40 MG TABLET PO (09:37)
[2024-09-07] MEDS: SILVER SULFADIAZINE CR 1% 25 GM TUBE TOP (09:51)
[2024-09-07] MEDS: VANCOMYCIN/WATER 1250 MG IVPB 250 ML 120 MG IV (10:49)
--- NOTE | 2024-09-07 11:32 | PC.NURSE ---
pt is crying and saying she just wants to go home today.
--- NOTE | 2024-09-07 11:33 | ESDS_ITS ---
<Statement entered by Kinjal Gan MD - 09/10/24 12:39> I reviewed above note and agree with findings and plans. I have also personally examined the patient with medicine team and went over assessment and plan with medical team including internal audit senior manager and resident physician. <Statement entered by Sabas De La Cruz MD - 09/07/24 11:47> I discussed and supervised with the internal audit senior manager physician who took care of this patient. I personally saw and examined the patient. I agree with most of the assessment and plan. Disclaimer: Despite multiple revisions, due to the dictation software being used, the document bellow may not be free of grammatical errors including phonetic/typographic errors. However, this does not deter from our commitment to providing health care in the patient's best interest in mind. Plan of care discussed with attending Physician Dr. Malik De La Cruz MD PGY-3 Planned Discharge Date 09/07/24 DS: Providers Provider Date of admission: 09/04/24 11:45 Primary care physician: Gopal Fulton MD Admitting Provider: Kinjal Gan MD Attending Provider on Admission: Kinjal Gan MD Consults: 09/04/24 15:15 Health Equity Referral - Knowledge Deficit Routine Comment: Positive screening for knowledge deficit needs. Health Equity Referral - Transportation Routine Comment: Positive screening for transportation needs. Health Equity Referral - Utilities Routine Comment: Positive screening for utility assistance needs. 09/05/24 09:20 Referral Wound Care Routine Comment: RIGHT BREAST 09/05/24 14:08 Referral Nutritional Services Routine Comment: Wounds Referral OP Wound Healing Dept Routine Comment: Right breast soft tissue infection 09/06/24 15:42 PT [Referral Physical Therapy] Routine Comment: Physician Instructions: Attending Provider on DC: Kinjal Gan MD Discharging Provider: Kinjal Gan MD DS: Diagnosis Problem List Completed Was Problem List Reviewed/Reconciled?: Yes Hospital Course Hospital Course Hospital course: Hospital course 54-year-old woman with history of seizures (not previously taking Keppra), COPD, hypertension, psoriasis, arthritis, and polysubstance use disorder (most recent methamphetamine use one day prior to presentation), who presented with painful right breast erythema, swelling, and serosanguineous drainage refractory to outpatient Bactrim therapy. Patient presented to the emergency department with progressive right breast pain, swelling, and erythema despite 3 days of oral Bactrim. On admission, she was afebrile and hemodynamically stable. Laboratory studies revealed normal WBC count, normal procalcitonin, and normal lactic acid. Imaging: ? Breast ultrasound: Edema of the anterolateral breast and axilla; differential included mastitis, cellulitis, and inflammatory breast cancer. ? CT chest with contrast: Diffuse anterolateral breast edema without abscess; incidental 6.6 mm pulmonary nodule in the right upper lobe. ? RUQ ultrasound: Normal gallbladder and common bile duct (ordered for elevated transaminases). She was initially started on IV vancomycin and cefepime. Wound care was con sulted. Given suspected antibiotic-related transaminitis and absence of cholecystitis, cefepime was discontinued and switched to levofloxacin. Vancomycin was continued for MRSA coverage. Hepatitis panel and HIV rapid test were negative. Transaminases slightly improved after discontinuation of cefepime. During hospitalization, the patient was emotionally labile, likely related to withdrawal from recent methamphetamine use. She expressed a strong desire to leave the hospital. Despite counseling about the importance of completing IV antibiotics, she insisted on discharge. pt instructed on the importance of continuing the antibiotics and following up with wound care clinic and establishing care at PCP Discharge Diagnoses 1. Right breast cellulitis vs. mastitis ? improving, no abscess 2. Polysubstance use disorder (methamphetamine) ? recent use 3. Seizure disorder ? off Keppra prior to admission 4. COPD ? stable 5. Hypertension ? stable 6. Incidental 6.6 mm RUL pulmonary nodule (requires follow-up) 7. Transaminitis ? likely antibiotic-related, improved Discharge Instructions You have been started on doxycycline twice daily for 10 days and levaquin once daily for 10 days Please follow up with your primary doctor in 7-10 days Please return to the ED if you develop new or worsening symptoms please follow up with your PCP regarding pulmonary nodule incidental finding, an d for mammography, and work up of transaminitis Follow up with [facility], [address] [place] [address]. Call [phone] for appointment. Dressing Change Home Care You have a wound that needs special care to heal.? Your body will make the new skin needed to close your wound, but you have to help.? Germs and old skin on the wound have to be removed.? This is done by changing the dressing on the wound as directed by your doctor. Wound:? Right breast/arm pit Supplies/Equipment (keep all supplies in one place clean and dry) o?? Normal Saline (salt water) solution.? You can make you own by boiling 2 cups of water with ? teaspoon of salt for 10 minutes.? Keep in a glass jar in the refrigerator and make a new batch every day. o?? Clean/Irrigate wound with ?normal saline or wound cleanser o?? Medication for wound: normal saline moistened gauze o?? Primary dressing ? o?? Secondary dressing: dry gauze and gauze roll o?? Tape o?? Gloves o?? Q-tips o?? Small trash bag o?? Other supplies Follow these instructions: 1.??? Wash your hands with soap and water. 2.??? Gather all your supplies and place on a clean towel or paper towel. 3.??? Put on gloves.- 4.??? Remove all of the old dressing (including gauze packing if any) and put in the trash bag. 5.??? Take off the gloves and put in trash bag. 6.??? If not using gloves wash your hands again or put on new gloves. 7.??? Irrigate wound with Normal saline. ?Place gauze in trash bag. 8. Pack wound with 1/4 in strip packing at the outer edge of wound until resistance felt. Than Apply Silvadene cream to wound bed and cover with dry gauze dressing twice a day and as needed for falling off. If active bleeding occurs, apply tight dressing and return to MD or ER. ? Notify primary doctor or return to Emergency Room if any of the following: ? Fever above 100.6? F. ? Increased pain ? Increase swelling ? Red streaks around your wound ? Drainage becomes foul smelling or changes color ? The wound is larger or deeper ? The wound looks dried out or dark ? Bleeding that does not stop with holding pressure Follow up with [facility], call [phone] for appointment. Case discussed with my senior resident Dr. De La Cruz Case discussed with my attending Dr. Malik Hannah MD PGY-1 Time Spent with Patient Time attestation: Total time spent providing and/or coordinating discharge services: Time spent: Greater than 30 minutes Exam Vital Signs Temp Pulse Resp BP Pulse Ox O2 Del Method 98.7 F 76 15 150/87 H 95 Room Air 09/07/24 07:40 09/07/24 07:40 09/07/24 07:40 09/07/24 07:40 09/07/24 07:40 09/07/24 07:40 Discharge Plan Plan Patient Disposition: HOME (Self Care) Patient condition on transfer: Stable Care Plan Goals: You have been started on doxycycline twice daily for 10 days and levaquin once daily for 10 days Please follow up with your primary doctor in 7-10 days Please return to the ED if you develop new or worsening symptoms Follow up with [facility], [address] [place] [address]. Call [phone] for appointment. Dressing Change Home Care You have a wound that needs special care to heal.? Your body will make the new skin needed to close your wound, but you have to help.? Germs and old skin on the wound have to be removed.? This is done by changing the dressing on the wound as directed by your doctor. Wound:? Right breast/arm pit Supplies/Equipment (keep all supplies in one place clean and dry) o?? Normal Saline (salt water) solution.? You can make you own by boiling 2 cups of water with ? teaspoon of salt for 10 minutes.? Keep in a glass jar in the refrigerator and make a new batch every day. o?? Clean/Irrigate wound with ?normal saline or wound cleanser o?? Medication for wound: normal saline moistened gauze o?? Primary dressing ? o?? Secondary dressing: dry gauze and gauze roll o?? Tape o?? Gloves o?? Q-tips o?? Small trash bag o?? Other supplies Follow these instructions: 1.??? Wash your hands with soap and water. 2.??? Gather all your supplies and place on a clean towel or paper towel. 3.??? Put on gloves.- 4.??? Remove all of the old dressing (including gauze packing if any) and put in the trash bag. 5.??? Take off the gloves and put in trash bag. 6.??? If not using gloves wash your hands again or put on new gloves. 7.??? Irrigate wound with Normal saline. ?Place gauze in trash bag. 8. Pack wound with 1/4 in strip packing at the outer edge of wound until resistance felt. Than Apply Silvadene cream to wound bed and cover with dry gauze dressing twice a day and as needed for falling off. If active bleeding occurs, apply tight dressing and return to MD or ER. ? Notify primary doctor or return to Emergency Room if any of the following: ? Fever above 100.6? F. ? Increased pain ? Increase swelling ? Red streaks around your wound ? Drainage becomes foul smelling or changes color ? The wound is larger or deeper ? The wound looks dried out or dark ? Bleeding that does not stop with holding pressure Follow up with [facility], call [phone] for appointment. Prescriptions/Referrals Prescriptions/Med Rec: New levetiracetam 500 mg/5 mL (5 mL) Solution 500 mg PO BID 30 Days Qty: 300 0RF levofloxacin 750 mg tablet 750 mg PO QDAY 10 Days Qty: 10 0RF Continued doxycycline monohydrate 100 mg capsule 100 mg PO BID 10 Days Qty: 20 0RF Discontinued gabapentin 300 MG capsule 300 mg PO TID Qty: 0 metoprolol tartrate 25 mg tablet 25 tab PO BID albuterol sulfate [ProAir HFA] 90 mcg/actuation HFA aerosol inhaler 1 inh inhalation QID PRN (Reason: shortness of breath or wheezing) Qty: 8.5 0RF prednisone 50 mg tablet 50 mg PO QDAY Qty: 7 0RF levetiracetam 500 mg tablet 500 mg PO BID oxybutynin chloride 5 mg tablet extended release 24hr 5 mg PO DAILY sertraline 25 mg Tablet 50 mg PO HS 30 Days Qty: 60 2RF fluticasone furoate-vilanterol [Breo Ellipta] 100-25 mcg/dose blister with device 1 inh inhalation Q24H Qty: 60 2RF albuterol sulfate 90 mcg/actuation HFA aerosol inhaler 1 inh inhalation QID PRN (Reason: shortness of breath or wheezing) Qty: 8.5 2RF levofloxacin 500 mg tablet 500 mg PO QDAY Qty: 5 0RF prednisone 10 mg tablet See Taper PO QDAY Qty: 10 0RF Taper: Prednisone Taper 20 mg DAILY for 2 Days and 0 Hour 10 mg DAILY for 2 Days and 0 Hour 5 mg DAILY for 7 Days and 0 Hour albuterol sulfate 90 mcg/actuation HFA aerosol inhaler 2 inh inhalation Q4H PRN (Reason: shortness of breath or wheezing) Qty: 8.5 0RF albuterol sulfate 90 mcg/actuation HFA aerosol inhaler 2 puff inhalation QID PRN (Reason: shortness of breath or wheezing) Qty: 8.5 0RF prednisone 50 mg tablet 50 mg PO QDAY Qty: 7 0RF prednisone 50 mg tablet 50 mg PO QDAY Qty: 3 0RF albuterol sulfate 90 mcg/actuation HFA aerosol inhaler 1 inh inhalation QID PRN (Reason: shortness of breath or wheezing) Qty: 8.5 0RF Rx Instructions: Please dispense with spacer and teaching Referrals: Doc - Wound Care,Generic [Physician] - Gopal Fulton MD [Primary Care Provider] - Patient/Caregiver Discharge Instructions Discharge Activity: activity as tolerated Education Materials: Nutrition for Wound Healing, Wound Infection Tx, Discharge Instructions for Cellulitis, Changing Dressing Dc Print Language: Latvian Stand Alone Forms: Marisel Award Info., Patient Portal Info Letter Discharge Order Discharge Orders: Discharge (Routine); Ordered 09/07/24 Ordered By: Surinder Finley Quality Discharge Quality Measures VTE prophylaxis
[2024-09-07 11:52] VITALS: BP 150/73; PULSE 86; RESP 16; TEMP 36.6; O2SAT 95
== END 2024-09-07 12:10 | disposition home or self-care (01) | DRG 385 ==
LOC: SERX 11:04 → SERHOLD 12:46 → S3SX 15:10
PROVIDERS: Nurse Practitioner Family; Admitting Provider Internal Medicine; Emergency Provider Emergency Medicine; PCP Family Medicine; Visit Provider Internal Medicine
DX: N61.0 Mastitis without abscess (principal); J44.9 Chronic obstructive pulmonary disease, unspecified; I10 Essential (primary) hypertension; R56.9 Unspecified convulsions; R91.1 Solitary pulmonary nodule; K76.0 Fatty (change of) liver, not elsewhere classified; F15.10 Other stimulant abuse, uncomplicated; L40.9 Psoriasis, unspecified; M19.90 Unspecified osteoarthritis, unspecified site; R74.01 Elevation of levels of liver transaminase levels; F12.90 Cannabis use, unspecified, uncomplicated; Z87.891 Personal history of nicotine dependence; T36.95XA Adverse effect of unspecified systemic antibiotic, initial encounter; Z85.3 Personal history of malignant neoplasm of breast; Z79.899 Other long term (current) drug therapy; Z88.0 Allergy status to penicillin
CPT/HCPCS: 36415; 71260; 74177; 76641; 76705; 80053; 80074; 80202; 80307; 80320; 81001; 81025; 83036; 83605; 83735; 83880; 84100; 84145; 84484; 85025; 85610; 85730; 86703; 87040; 87070; 87075; 87205; 93005; 93225; 96365; 96366; 96375; 97161; 99284; A4649; J0692; J1644; J1953; J1956; J2185; J2250; J2270; J3370; J3372; J3375; J3475; J7030; J7050; J7999; Q9967; A9270; G0480

== ENCOUNTER → 2024-09-09 | Outpatient (CLI) | payer MEDICAID, SELFPAY | END | disposition home or self-care (01) | PROVIDERS: PCP Family Medicine; Referring Provider Family Medicine; Visit Provider Surgery | DX: S21.001A Unspecified open wound of right breast, initial encounter (principal); S27.9XXA Injury of unspecified intrathoracic organ, initial encounter; X58.XXXA Exposure to other specified factors, initial encounter; J44.9 Chronic obstructive pulmonary disease, unspecified; I10 Essential (primary) hypertension; M06.9 Rheumatoid arthritis, unspecified; L40.9 Psoriasis, unspecified; F19.10 Other psychoactive substance abuse, uncomplicated | CPT/HCPCS: 16020; 99212; A9270; G0463 ==

== ENCOUNTER 2024-09-11 10:24 | Emergency (ER) | payer MEDICAID, SELFPAY ==
[2024-09-11 10:26] VITALS: BMI 41.3
[2024-09-11 10:45] VITALS: BP 146/84; PULSE 87; RESP 18; TEMP 36.9; O2SAT 99
--- NOTE | 2024-09-11 11:04 | EDNOTE_ITS ---
ED Wound/Laceration-RME/HPI General Chief Complaint: Wound/Laceration Stated Complaint: WOUND R) BREST/AXILLA; IS PACKING IN PLACE Time Seen by Provider: 09/11/24 10:42 Source: patient Arrival date/time: 09/11/24 10:24 54-year-old female with no known medical history presents to the emergency room with a chief complaint of wound in her right breast. Patient states she was admitted and discharged and is here to get the wound repacked. Mode of arrival: ambulatory Limitations: no limitations Related Data Previous Rx's ?Medication ?Instructions ?Recorded doxycycline monohydrate 100 mg 100 mg PO BID 10 days # 20 caps 09/07/24 capsule levetiracetam 500 mg/5 mL (5 mL) 500 mg (5 mL) PO BID 1 month #300 09/07/24 oral solution mL levofloxacin 750 mg tablet 750 mg PO QDAY 10 days #10 tabs 09/07/24 Allergies Allergy/AdvReac Type Severity Reaction Status Date / Time Penicillins Allergy Mild RESP.DISTRE Verified 09/11/24 10:30 SS tomato Allergy Mild FACIAL Verified 09/11/24 10:30 SWELLING watermelon Allergy Mild BLISTERS Verified 09/11/24 10:30 IN MOUTH Review of Systems Review of Systems Systems Reviewed: All systems reviewed, normal except as documented Constitutional Constitutional: Reports system reviewed and no additional complaints, except as documented, Denies fatigue, Denies fever(s), Denies headache(s) and Denies weakness Eyes Eyes: Reports system reviewed and no additional complaints, except as documented, Denies blurry vision and Denies change in vision ENT Ears, Nose, Mouth, and Throat: Reports system reviewed and no additional complaints, except as documented, Denies otalgia, Denies headache(s), Denies nasal congestion, Denies throat swelling and Denies vertigo Cardiovascular Cardiovascular: Reports system reviewed and no additional complaints, except as documented, Denies chest pain, Denies dyspnea and Denies dyspnea on exertion Respiratory Respiratory: Reports system reviewed and no additional complaints, except as documented, Denies chest congestion, Denies cough, Denies dyspnea, Denies dyspnea on exertion and Denies wheezing Gastrointestinal Gastrointestinal: Reports system reviewed and no additional complaints, except as documented, Denies abdominal pain, Denies cramping, Denies nausea and Denies vomiting Genitourinary Genitourinary: Reports system reviewed and no additional complaints, except as documented Musculoskeletal Musculoskeletal: Reports system reviewed and no additional complaints, except as documented and Denies back pain Integumentary/Breasts Skin/Breast: Reports system reviewed and no additional complaints, except as documented and Reports wounds Neurologic Neurologic: Reports system reviewed and no additional complaints, except as documented, Denies confusion, Denies headache(s), Denies lack of coordination, Denies vertigo and Denies weakness Psychiatric Psychiatric: Reports system reviewed and no additional complaints, except as documented, Denies anxiety, Denies confusion, Denies depression, Denies paranoia, Denies suicidal ideation and Denies tactile hallucinations Endocrine Endocrine: Reports system reviewed and no additional complaints, except as documented and Denies fatigue Hematologic/Lymphatic Hematologic/Lymphatic: Reports system reviewed and no additional complaints, except as documented and Denies lymphadenopathy Allergic/Immunologic Allergic/Immunologic: Reports system reviewed and no additional complaints, except as documented, Denies throat swelling, Denies urticaria and Denies wheezing Past Medical History Past Medical History NEUROLOGIC: Positive Neurological Disorders, Seizures, Epilepsy and Head Trauma; Negative Migraine CARDIAC: Positive Cardiac Disorders and Hypertension; Negative Hypercholesterolemia or Congestive Heart Failure RESPIRATORY: Positive Chronic Obstructive Pulmonary Disease (COPD), Asthma, Bronchitis and Pneumonia GASTROINTESTINAL: Positive Colitis and Obesity; Negative Gastrointestinal Disorders GENITOURINARY: Negative Genitourinary Disorders or Renal Disease REPRODUCTIVE: Positive Previous Pregnancies MUSCULOSKELETAL: Positive Arthritis and Fractures (C5 lateral); Negative Musculoskeletal Disorders ENT: Positive Head Trauma ENDOCRINE: Negative Endocrine Disorders, Diabetes Mellitus Type 1 or Diabetes Mellitus Type 2 HEMATOLOGIC: Negative Blood Disorders or Sickle Cell Disease PSYCHO/SOCIAL: Positive Recreational Drug Use OTHER HISTORY: Positive Hospitalization, Chicken Pox, Measles and Mumps; Negative Shingles, Falls, Blood Transfusions, Blood Transfusion Reaction, Anesthesia Reactions, MRSA, Clostridium Difficile or Cancer Family History FAMILY HISTORY: Positive Family Cardiac Disorders and Family Cancer; Negative Family Anesthesia Reaction Surgical History SURGICAL: Positive Tubal Ligation and Section Social History SMOKING STATUS: Former smoker SUBSTANCE USE: marijuana (Uses at night to sleep) and methamphetamine (Former) ED Exam General Limitations: Present no limitations General appearance: Present alert and in no apparent distress Head Head exam: Present atraumatic Eye Eye exam: Present normal appearance, PERRL and EOMI ENT ENT exam: Present normal exam, normal oropharynx and mucous membranes moist Neck Neck exam: Present normal inspection, full ROM and trachea midline Chest Chest inspection: Present normal inspection and symmetric chest wall rise Respiratory Respiratory exam: Present normal lung sounds bilaterally Cardiovascular Cardiovascular exam: Present regular rate, normal rhythm and normal heart sounds Abdominal Exam Abdominal exam: Present soft and normal bowel sounds Extremities Exam Extremities exam: Present normal inspection and full ROM Back Exam Back exam: Present normal inspection and full ROM Neurological Exam Neurological exam: Present alert, oriented X3 and CN II-XII intact Psychiatric Psychiatric exam: Present normal affect and normal mood Skin Skin exam: Present warm, dry, intact and normal color Expanded Skin Exam Type of lesion: Present abscess Distribution: Present RUE Body image: 2 1. 0.5 cm wound to the right breast axilla Course Quality Measures none Orders Category Date Time Status Wound Care NOW Care 09/11/24 10:58 Active Vital Signs Vital signs: Vital Signs Temperature 98.5 F 09/11/24 10:45 Pulse Rate 87 09/11/24 10:45 Respiratory Rate 18 09/11/24 10:45 Blood Pressure 146/84 H 09/11/24 10:45 Pulse Oximetry (%) 99 09/11/24 10:45 Oxygen Delivery Method Room Air 09/11/24 10:45 Wound / Laceration MDM Narrative MDM Narrative:: 54-year-old female with no known medical history presents to the emergency room with a chief complaint of wound in her right breast. Patient states she was admitted and discharged and is here to get the wound repacked. Patient is hemodynamically stable and in no apparent distress. She is afebrile not tachycardic not tachypneic and does not meet any sepsis criteria Patient was recently discharged from the hospital for sepsis due to the wound in her right breast. The patient is currently on antibiotics. I evaluated the wound and at this time there is no signs of infection. There is erythema but there is no warmth to the touch or there is no pus draining from it. The wound appears to be healing appropriately. The patient is on antibiotics and is here to get the packing changed. The packing was changed and the patient was educated on how to change he. The patient has an appointment with the wound care clinic. Patient was discharged and educated to follow-up with primary care provider in the next 24 to 48 hours and return to the emergency room for any evidence of worsening signs or symptoms Patient data External records reviewed:: [facility] previous records Clinical information provided by:: patient Social determinants that could affect healthcare access:: none Patient has the following chronic illnesses:: No chronic illness How is presenting disease/condition affected by chronic disease/condition?: no chronic disease Evaluation data The following diagnostics were reviewed and interpreted by me:: lab results and radiology exam(s) Lab and/or radiology exams considered but not ordered:: Labs and radiology exams considered and ordered Interpretation Summary: N/A Medications / Prescriptions Medications or Prescriptions considered but not ordered:: Medication not given Medication administrations:: Medication not given Consultations Consultation(s) initiated? (list below): No Diagnosis Wound Differential Diagnosis: laceration, abscess and other (Cellulitis) Most likely diagnosis given after review of the tests above:: Cellulitis of the right breast Admission Indicated Admission indicated?: not indicated Admission Request Was there a request for admission?: No Disposition Plan Disposition Plan: Discharge Discharge Attestation Discharge Attestation: The patient and all family members were given an opportunity to ask questions and understood the discharge instructions. Discharge instructions specifically effects, indications for sooner follow up or return to the emergency department, and the expected course of current diagnosis. Patient condition: Stable Discharge Plan Plan Patient Disposition: HOME (Self Care) Discharge Disposition comment: Stable Prescriptions/Referrals Prescriptions/Med Rec: No Action levetiracetam 500 mg/5 mL (5 mL) Solution 500 mg PO BID 30 Days Qty: 300 0RF levofloxacin 750 mg tablet 750 mg PO QDAY 10 Days Qty: 10 0RF doxycycline monohydrate 100 mg capsule 100 mg PO BID 10 Days Qty: 20 0RF Problem List Clinical Impression: Cellulitis of right breast Patient/Caregiver Discharge Instructions Education Materials: ED Cellulitis Additional Instructions: Please follow-up with your primary care provider in the wound care clinic in the next 24 to 48 hours Your wound appears to be healing appropriately. Please continue to take the antibiotics that were prescribed. Your wound was repacked and you were given education on how to clean and repack your wound. For any evidence of worsening signs or symptoms return to the emergency room immediately Print Language: Bengali Stand Alone Forms: Marisel Award Info., Patient Portal Info Letter PA/EMAIL MARKETING MANAGER Supervising Physician PA/EMAIL MARKETING MANAGER Supervising Physician: Dr. Renteria
== END 2024-09-11 11:24 | disposition home or self-care (01) ==
LOC: SERX 11:28
PROVIDERS: Emergency Provider Family Medicine
DX: N61.0 Mastitis without abscess (principal)
CPT/HCPCS: 99284

== ENCOUNTER → 2024-09-16 | Outpatient (CLI) | payer MEDICAID, SELFPAY | END | disposition home or self-care (01) | LOC: SWHD 10:21 | PROVIDERS: PCP Nurse Practitioner Family; Referring Provider Nurse Practitioner Family; Visit Provider Student in an Organized Health Care Education/Training Program | DX: S21.001A Unspecified open wound of right breast, initial encounter (principal); X58.XXXA Exposure to other specified factors, initial encounter; J44.9 Chronic obstructive pulmonary disease, unspecified; M06.9 Rheumatoid arthritis, unspecified; L40.9 Psoriasis, unspecified; F19.10 Other psychoactive substance abuse, uncomplicated | CPT/HCPCS: 99213; A9270; G0463 ==

== ENCOUNTER → 2024-09-23 | Outpatient (CLI) | payer MEDICAID, SELFPAY | END | disposition home or self-care (01) | LOC: SWHD 11:18 | PROVIDERS: PCP Nurse Practitioner Family; Referring Provider Nurse Practitioner Family; Visit Provider Physician Assistant | DX: S21.001A Unspecified open wound of right breast, initial encounter (principal); X58.XXXA Exposure to other specified factors, initial encounter; J44.9 Chronic obstructive pulmonary disease, unspecified; I10 Essential (primary) hypertension; M06.9 Rheumatoid arthritis, unspecified; L40.9 Psoriasis, unspecified; F19.10 Other psychoactive substance abuse, uncomplicated | CPT/HCPCS: 99213; G0463 ==

== ENCOUNTER → 2024-09-28 | Outpatient (CLI) | payer MEDICAID, SELFPAY | END | disposition home or self-care (01) | PROVIDERS: PCP Nurse Practitioner Family; Referring Provider Nurse Practitioner Family; Visit Provider Student in an Organized Health Care Education/Training Program | DX: S21.001A Unspecified open wound of right breast, initial encounter (principal); X58.XXXA Exposure to other specified factors, initial encounter; J44.9 Chronic obstructive pulmonary disease, unspecified; F19.10 Other psychoactive substance abuse, uncomplicated; L40.9 Psoriasis, unspecified; M06.9 Rheumatoid arthritis, unspecified | CPT/HCPCS: 10060; A9270 ==

== ENCOUNTER → 2024-10-11 | Outpatient (CLI) | payer MEDICAID, SELFPAY ==
--- NOTE | 2024-10-11 08:30 | XR_ITS ---
Examination: Diagnostic digital mammography, unilateral, right Computer aided detection 3-D breast Tomosynthesis, unilateral Date and time of exam: October 11, 2024 0914 hours, comparison May 10, 2014 INDICATIONS: History right breast abscess September 2024 Technique: Nonmagnified MLO, CC views of the right breast have been obtained, reconstructed from 3-D Tomosynthesis images. R2 computer aided detection program utilized for evaluation of suspicious masses and/or abnormal calcifications. 3-D Tomosynthesis images obtained. Findings: Scattered areas of fibroglandular density Benign calcifications. No suspicious masses Impression: BI-RADS category 0: Incomplete: Need additional imaging evaluation Recommend repeat right breast sonography to compare with the September 06, 2024 exam
== END | disposition home or self-care (01) ==
LOC: CDIM 08:53
PROVIDERS: Referring Provider Surgery; Visit Provider Surgery
DX: R92.8 Other abnormal and inconclusive findings on diagnostic imaging of breast (principal)
CPT/HCPCS: 77061; 77065; G0279

== ENCOUNTER → 2024-10-21 | Outpatient (CLI) | payer MEDICAID, SELFPAY | END | disposition home or self-care (01) | LOC: SWHD 10:19 | PROVIDERS: PCP Nurse Practitioner Family; Referring Provider Nurse Practitioner Family; Visit Provider Surgery | DX: S21.001A Unspecified open wound of right breast, initial encounter (principal); X58.XXXA Exposure to other specified factors, initial encounter; J44.9 Chronic obstructive pulmonary disease, unspecified; F19.10 Other psychoactive substance abuse, uncomplicated; L40.9 Psoriasis, unspecified; M06.9 Rheumatoid arthritis, unspecified | CPT/HCPCS: 17250; A9270 ==

== ENCOUNTER → 2024-10-28 | Outpatient (CLI) | payer MEDICAID, SELFPAY | END | disposition home or self-care (01) | LOC: SWHD 11:17 | PROVIDERS: PCP Nurse Practitioner Family; Referring Provider Nurse Practitioner Family; Visit Provider Student in an Organized Health Care Education/Training Program | DX: L97.329 Non-pressure chronic ulcer of left ankle with unspecified severity (principal); S21.001A Unspecified open wound of right breast, initial encounter; X58.XXXA Exposure to other specified factors, initial encounter; J44.9 Chronic obstructive pulmonary disease, unspecified; F19.10 Other psychoactive substance abuse, uncomplicated; L40.9 Psoriasis, unspecified; M06.9 Rheumatoid arthritis, unspecified | CPT/HCPCS: A9270 ==

== ENCOUNTER → 2024-11-04 | Outpatient (CLI) | payer MEDICAID, SELFPAY | END | disposition home or self-care (01) | LOC: SWHD 09:51 | PROVIDERS: PCP Nurse Practitioner Family; Referring Provider Nurse Practitioner Family; Visit Provider Physician Assistant | DX: L97.329 Non-pressure chronic ulcer of left ankle with unspecified severity (principal); S21.001A Unspecified open wound of right breast, initial encounter; X58.XXXA Exposure to other specified factors, initial encounter; J44.9 Chronic obstructive pulmonary disease, unspecified; F19.10 Other psychoactive substance abuse, uncomplicated; L40.9 Psoriasis, unspecified; M06.9 Rheumatoid arthritis, unspecified | CPT/HCPCS: 29581; A9270 ==

== ENCOUNTER → 2024-11-10 | Outpatient (CLI) | payer MEDICAID, SELFPAY | END | disposition home or self-care (01) | LOC: SWHD 08:46 | PROVIDERS: PCP Nurse Practitioner Family; Referring Provider Nurse Practitioner Family; Visit Provider Student in an Organized Health Care Education/Training Program | DX: I87.312 Chronic venous hypertension (idiopathic) with ulcer of left lower extremity (principal); L97.322 Non-pressure chronic ulcer of left ankle with fat layer exposed; J44.9 Chronic obstructive pulmonary disease, unspecified; F19.10 Other psychoactive substance abuse, uncomplicated; L40.9 Psoriasis, unspecified; M06.9 Rheumatoid arthritis, unspecified | CPT/HCPCS: 29581; A9270 ==

== ENCOUNTER → 2024-11-17 | Outpatient (CLI) | payer MEDICAID, SELFPAY | END | disposition home or self-care (01) | PROVIDERS: PCP Nurse Practitioner Family; Referring Provider Nurse Practitioner Family; Visit Provider Student in an Organized Health Care Education/Training Program | DX: I87.312 Chronic venous hypertension (idiopathic) with ulcer of left lower extremity (principal); L97.522 Non-pressure chronic ulcer of other part of left foot with fat layer exposed; J44.9 Chronic obstructive pulmonary disease, unspecified; F19.10 Other psychoactive substance abuse, uncomplicated; L40.9 Psoriasis, unspecified; M06.9 Rheumatoid arthritis, unspecified | CPT/HCPCS: 97597; A9270 ==

== ENCOUNTER → 2024-11-30 | Outpatient (CLI) | payer MEDICAID, SELFPAY | END | disposition home or self-care (01) | LOC: SWHD 14:20 | PROVIDERS: PCP Nurse Practitioner Family; Referring Provider Nurse Practitioner Family; Visit Provider Student in an Organized Health Care Education/Training Program | DX: I87.312 Chronic venous hypertension (idiopathic) with ulcer of left lower extremity (principal); L97.522 Non-pressure chronic ulcer of other part of left foot with fat layer exposed; J44.9 Chronic obstructive pulmonary disease, unspecified; F19.10 Other psychoactive substance abuse, uncomplicated; M06.9 Rheumatoid arthritis, unspecified; L40.9 Psoriasis, unspecified | CPT/HCPCS: A9270 ==

== ENCOUNTER → 2024-12-07 | Outpatient (CLI) | payer MEDICAID, SELFPAY | END | disposition home or self-care (01) | LOC: SWHD 14:20 | PROVIDERS: PCP Nurse Practitioner Family; Referring Provider Nurse Practitioner Family; Visit Provider Student in an Organized Health Care Education/Training Program | DX: I87.312 Chronic venous hypertension (idiopathic) with ulcer of left lower extremity (principal); L97.522 Non-pressure chronic ulcer of other part of left foot with fat layer exposed; J44.9 Chronic obstructive pulmonary disease, unspecified; F19.10 Other psychoactive substance abuse, uncomplicated; M06.9 Rheumatoid arthritis, unspecified; L40.9 Psoriasis, unspecified | CPT/HCPCS: 29580 ==

== ENCOUNTER → 2024-12-14 | Outpatient (CLI) | payer MEDICAID, SELFPAY | END | disposition home or self-care (01) | LOC: SWHD 14:33 | PROVIDERS: PCP Nurse Practitioner Family; Referring Provider Nurse Practitioner Family; Visit Provider Student in an Organized Health Care Education/Training Program | DX: I87.312 Chronic venous hypertension (idiopathic) with ulcer of left lower extremity (principal); L97.521 Non-pressure chronic ulcer of other part of left foot limited to breakdown of skin; L29.89 Other pruritus; J44.9 Chronic obstructive pulmonary disease, unspecified; M06.9 Rheumatoid arthritis, unspecified; L40.9 Psoriasis, unspecified; A49.02 Methicillin resistant Staphylococcus aureus infection, unspecified site | CPT/HCPCS: 99213; A9270; G0463 ==

== ENCOUNTER → 2024-12-21 | Outpatient (CLI) | payer MEDICAID, SELFPAY | END | disposition home or self-care (01) | LOC: SWHD 11:16 | PROVIDERS: PCP Nurse Practitioner Family; Referring Provider Nurse Practitioner Family; Visit Provider Student in an Organized Health Care Education/Training Program | DX: I87.312 Chronic venous hypertension (idiopathic) with ulcer of left lower extremity (principal); L97.521 Non-pressure chronic ulcer of other part of left foot limited to breakdown of skin; J44.9 Chronic obstructive pulmonary disease, unspecified; M06.9 Rheumatoid arthritis, unspecified; L40.9 Psoriasis, unspecified | CPT/HCPCS: 99212; G0463 ==

== ENCOUNTER → 2025-01-04 | Outpatient (CLI) | payer MEDICAID, SELFPAY | END | disposition home or self-care (01) | LOC: SWHD 14:26 | PROVIDERS: PCP Nurse Practitioner Family; Referring Provider Nurse Practitioner Family; Visit Provider Student in an Organized Health Care Education/Training Program | DX: I87.312 Chronic venous hypertension (idiopathic) with ulcer of left lower extremity (principal); L97.521 Non-pressure chronic ulcer of other part of left foot limited to breakdown of skin; J44.9 Chronic obstructive pulmonary disease, unspecified; M06.9 Rheumatoid arthritis, unspecified; L40.9 Psoriasis, unspecified; A49.02 Methicillin resistant Staphylococcus aureus infection, unspecified site | CPT/HCPCS: 99213; G0463 ==

== ENCOUNTER → 2025-01-18 | Outpatient (CLI) | payer MEDICAID, SELFPAY | END | disposition home or self-care (01) | PROVIDERS: PCP Nurse Practitioner Family; Referring Provider Nurse Practitioner Family; Visit Provider Student in an Organized Health Care Education/Training Program | DX: I87.312 Chronic venous hypertension (idiopathic) with ulcer of left lower extremity (principal); L97.521 Non-pressure chronic ulcer of other part of left foot limited to breakdown of skin; J44.9 Chronic obstructive pulmonary disease, unspecified; L40.9 Psoriasis, unspecified; M06.9 Rheumatoid arthritis, unspecified; A49.02 Methicillin resistant Staphylococcus aureus infection, unspecified site | CPT/HCPCS: 97597; 99213; A9270; G0463 ==

== ENCOUNTER → 2025-01-25 | Outpatient (CLI) | payer MEDICAID, SELFPAY | END | disposition home or self-care (01) | LOC: SWHD 14:06 | PROVIDERS: Visit Provider Student in an Organized Health Care Education/Training Program | DX: I87.312 Chronic venous hypertension (idiopathic) with ulcer of left lower extremity (principal); L97.521 Non-pressure chronic ulcer of other part of left foot limited to breakdown of skin; J44.9 Chronic obstructive pulmonary disease, unspecified; M06.9 Rheumatoid arthritis, unspecified; L40.9 Psoriasis, unspecified; A49.02 Methicillin resistant Staphylococcus aureus infection, unspecified site | CPT/HCPCS: 97597; A9270 ==